=== PATIENT | male | born 1970 | race Caucasian/White ===

== ENCOUNTER → 2023-01-21 | Outpatient (CLI) | payer BC ==
[2023-01-21 22:42] LABS: Basophils # (A) 0.06 X 10*3/uL (0.00-0.10); Basophils % (A) 1.1 %; Eosinophils # (A) 0.08 X 10*3/uL (0.04-0.35); Eosinophils % (A) 1.4 %; HCT 47.6 % (39.6-50.0); HGB 15.6 g/dL (13.0-17.0); Immature Grans, Automated 0.4 %; Lymphocytes # (A) 1.32 X 10*3/uL (0.90-5.00); Lymphocytes % (A) 23.4 %; MCH 31.2 pg (27.0-32.0); MCHC 32.8 g/dL (32.0-37.0); MCV 95.2 fL (80.0-97.0); Mean Platelet Volume 11.2 fL (9.5-12.2); Monocytes # (A) 0.57 X 10*3/uL (0.20-1.00); Monocytes % (A) 10.1 %; NRBC Per 100 WBC 0 /100 WBCS (0.0-0.0); Neutrophils # (A) 3.58 X 10*3/uL (1.80-7.70); Neutrophils % (A) 63.6 %; Platelet Count 145 X 10*3/uL (140-440); RDW 11.9 % (11.5-14.5); WBC 5.63 X 10*3/uL (4.50-10.00)
== END | disposition home or self-care (01) ==
LOC: LABWHC1 09:43
PROVIDERS: ATTEND Surgery
DX: Z01.812 Encounter for preprocedural laboratory examination (principal)
CPT/HCPCS: 36415; 85025; 93005

== ENCOUNTER 2023-01-31 05:56 | Day surgery (SDC) | payer BC ==
[2023-01-26 10:53] VITALS: BMI 33.5
[~2023-01-31 05:56] MED LIST: ACETAMINOPHEN TAB 500 MG TAB PO PRN; HEPARIN SODIUM,PORCINE/PF 5,000 UNIT/0.5 ML SYRINGE SQ PRN
[2023-01-31] MEDS ORDERED: LIDOCAINE 1% (10MG/ML) FOR IV START INTRADERMA PRN (06:12)
[2023-01-31] MEDS ORDERED: DEXAMETHASONE SOD PHOSPHATE 4 MG/ML 1 ML VIAL IV ONE (06:12)
[2023-01-31] MEDS ORDERED: ONDANSETRON 4 MG/2 ML VIAL IVP ONE (06:12)
[2023-01-31] MEDS ORDERED: HYDROmorphone 0.5 MG/0.5 ML SYRINGE IVP PRN (06:12)
[2023-01-31] MEDS ORDERED: MIDAZOLAM 2 MG/2 ML VIAL IV PRN (06:12)
[2023-01-31] MEDS: LACTATED RINGERS 1,000 ML IV SCH ×2 (06:42→07:32)
[2023-01-31] MEDS ORDERED: fentaNYL (PF) 50 MCG/ML 2 ML AMP IVP ONE (07:11)
[2023-01-31] MEDS ORDERED: BUPIVACAIN-EPI 0.25%-1:200,000 30 ML VIAL SQ ONE (07:56)
[2023-01-31] MEDS ORDERED: LACTATED RINGERS 1,000 ML IV ONE (08:29)
--- NOTE | 2023-01-31 08:47 | P.ANPRN ---
Procedure Note - Anesthesia - Nerve Block Performed Bilateral Erector Spinae Single Time Out Performed: Yes ([id number]) Date of Procedure: 01/31/23 Procedure Start Time: 07:11 Procedure Stop Time: 07:15 Location of Patient: PreOp Indication: Acute Post-Operative Pain, Requested by Surgeon Specifically requested for management of pain by DrRonald: Malcolm Maya Sedation Type: Sedate with meaningful contact maintained Preparation: Sterile Prep Position: Prone Catheter: None Needle Types: Pajunk Needle Gauge: 21 Ultrasound used to visualize needle placement: Yes Ultrasound used to observe medication spread: Yes Injectate: 0.5% Ropivacaine (see comment for volume) (15cc + 15cc nacl pf) Blood Aspirated: No Pain Paresthesia on Injection Noted: No Resistance on Injection: Normal Image Stored and Saved: Yes Events: Uneventful and Well Tolerated
--- NOTE | 2023-01-31 09:06 | P.OP ---
Date of Procedure: 01/31/23 Preoperative Diagnosis: Left inguinal hernia Postoperative Diagnosis: Left inguinal hernia Procedure(s) Performed: Laparoscopic robotic system repair of left inguinal hernia Left cord lipoma Laparoscopic lysis of adhesions colorapphy Transversus abdominis plane block Anesthesia: AMELIA Surgeon: Malcolm Maya Estimated Blood Loss (ml): 10 Pathology: other (Cord lipoma) Condition: stable Disposition: PACU Description of Procedure: The patient's placed on the operating table in the supine position. The patient received general anesthesia. The patient's abdomen was prepped and draped in usual sterile fashion. The skin was anesthetized 1% local Xylocaine at the [facility]. Using an 11 blade a skin incision was made above the umbilicus. There was evidence of a umbilical hernia which had incarcerated omentum. The fascia was grasped with a Marlys and then the peritoneal cavity was entered with the Veress needle. Position of the Veress needle was confirmed with a positive drop test. After adequate insufflation a 5 mm trocar was placed into the peritoneal cavity. The Laparoscope was placed the peritoneal cavity. And a robotic 8 mm trocar was placed in the right lateral position and then another 8 mm robotic trochars placed in the left lateral position. The original 5 mm trocar was exchanged for a 12 mm trocar. A four-quadrant transversus abdominis plane block was then performed using 1% local Xylocaine. The patient was placed in reverse Trendelenburg and then the patient was docked to the robot. There were significant adhesions and left lower quadrant. The colon appeared to be adherent to the area of the hernia. Using robotic scissors the colon adhesions were lysed. Approximately 20 minutes of operative time used to lyse adhesions. There was a seromuscular tear of the colon wall. This was sutured with 30V lock suture. There is no evidence of any mucosal injury. Next the peritoneum over top of the hernia was incised and then using blunt and sharp dissection and electrocautery the hernia sac was dissected free from the floor of the inguinal canal. The cord lipoma was dissected free and sent to pathology. The hernia sac was completely reduced into the peritoneal cavity. And then using the Pro molecular technologist mesh the hernia was repaired. The peritoneum was then sutured with 20V lock suture. The patient was then undocked the robot. The needle was withdrawn from the peritoneal cavity. The umbilical trocar site was closed with 0 Ethibond suture. The skin was closed interrupted 3-0 Monocryl suture. Dermabond dressing was applied. Patient was sent to recovery in stable condition.
[2023-01-31 09:07] VITALS: TEMP 97
[2023-01-31 09:53] VITALS: RESP 14
[2023-01-31 10:13] VITALS: BP 148/84; PULSE 77
== END 2023-01-31 11:08 | disposition home or self-care (01) ==
LOC: OR 05:56
PROVIDERS: ATTEND Surgery
DX: K40.90 Unilateral inguinal hernia, without obstruction or gangrene, not specified as recurrent (principal); G89.18 Other acute postprocedural pain; Z87.891 Personal history of nicotine dependence
CPT/HCPCS: 49650; S2900; 64999; 76942; 86850; 86900; 86901; 88304

== ENCOUNTER → 2024-08-09 | Outpatient (CLI) | payer BC ==
[2024-08-09 16:20] LABS: Basophils % (A) 1 %; Eosinophils # (A) 0.1 k/uL (0-0.7); Eosinophils % (A) 1 %; HCT 44.5 % (39.0-53.0); HGB 14.1 gm/dL (13.0-17.5); Lymphocytes # (A) 1.8 k/uL (1.0-4.8); Lymphocytes % (A) 19 %; MCH 31.3 pg (25.0-35.0); MCHC 31.8 g/dL (31.0-37.0); MCV 98.4 fL (80.0-100.0); Mean Platelet Volume 8.2; Monocytes # (A) 0.6 k/uL (0-1.0); Monocytes % (A) 6 %; Neutrophils # (A) 6.7 k/uL (1.3-7.7); Neutrophils % (A) 71 %; Platelet Count 240 k/uL (150-450); RBC 4.52 m/uL (4.30-5.90); RDW 11.8 % (11.5-15.5); WBC 9.4 k/uL (3.8-10.6)
[2024-08-09 16:32] LABS: ALT 42 U/L (4-49); AST 54 U/L (17-59); African American GFR (CKD) 86 (>60 ml/min/1.73 sqM); Albumin 4.7 g/dL (3.5-5.0); Albumin/Globulin Ratio 1.4; Alkaline Phosphatase 124 U/L (38-126); Anion Gap 11 mmol/L; Blood Urea Nitrogen 29 mg/dL (9-20); Calcium 9.2 mg/dL (8.4-10.2); Carbon Dioxide 23 mmol/L (22-30); Chloride 106 mmol/L (98-107); Globulin 3.4 g/dL; Glucose 130 mg/dL (74-99); Non-African American GFR(CKD) 75 (>60 ml/min/1.73 sqM); Potassium 5.6 mmol/L (3.5-5.1); Sodium 140 mmol/L (137-145); Total Bilirubin 0.9 mg/dL (0.2-1.3); Total Protein 8.1 g/dL (6.3-8.2)
--- NOTE | 2024-08-09 18:21 | CT ---
EXAMINATION TYPE: CT abdomen pelvis w con DATE OF EXAM: 08/09/2024 COMPARISON: NONE HISTORY: 54-year-old male R10.32 Nausea, vomiting and diarrhea, LLQ pain. TECHNIQUE: Contiguous axial scanning of the abdomen and pelvis following administration of 100 ml Iso alma-370 IV contrast. Delayed images through the kidneys and coronal/sagittal reconstructions perform ed. CT DLP: 1247 mGycm Automated exposure control for dose reduction was used. FINDINGS: The heart is normal size without pericardial effusion. Lung bases clear without pleural effusion. Tiny hiatal hernia. Liver enlarged at 18.6 cm. Low attenuation of the hepatic parenchyma suggests fatty infiltration. Por reji venous system is patent. No biliary ductal dilatation. No abnormal gallbladder distention. Adrenal glands, kidneys, spleen, pancreas within normal limits. No dilated small bowel, free fluid, or free air. No mesenteric or retroperitoneal lymphadenopathy. Moderate atherosclerotic calcification and plaque within the infrarenal abdominal aorta and proximal common iliac arteries. There is some fusiform ectasia of the 2.8 cm long infrarenal portion. Small to moderate-sized hiatal hernia measuring 3.3 cm wide and 4.1 cm craniocaudal. Normal appendix. A few scattered colonic diverticula particularly at the ascending colon and cecum. N o pericolonic inflammatory change. Oral contrast progressed to the rectum. There is moderate circumferential bladder wall thickening. Prostate gland normal size. Mildly patulou s right inguinal canal. No abnormal fluid collection in the pelvis or pelvic lymphadenopathy. Bones: Scattered mild degenerative changes throughout the right. Mild degenerative changes joints. IMPRESSION: 1. HEPATOMEGALY AT 18.6 CM WITH UNDERLYING FATTY INFILTRATION OF THE LIVER. CORRELATE WITH LFT's, LIP ID PROFILE, AND PATIENT RISK FACTORS. 2. TINY HIATAL HERNIA AND A SMALL TO MODERATE-SIZED FATTY UMBILICAL HERNIA MEASURING 4.1 X 3.3 CM. 3. MINIMAL DIVERTICULAR CHANGE ALONG THE CECUM/ASCENDING COLON. 4. MODERATE CIRCUMFERENTIAL BLADDER WALL THICKENING COULD REFLECT CHRONIC BLADDER WALL HYPERTROPHY OR CYSTITIS. CLINICALLY CORRELATE. [facility], , 08/09/2024 6:19 PM
== END | disposition home or self-care (01) ==
LOC: RADCTMAIN 15:37
PROVIDERS: ATTEND Family Medicine
CPT/HCPCS: 74177; 80053; 85025

== ENCOUNTER → 2024-10-28 | Outpatient (CLI) | payer OTHER ==
--- NOTE | 2024-10-28 16:31 | XR ---
EXAMINATION TYPE: XR shoulder complete RT DATE OF EXAM: 10/28/2024 4:27 PM INDICATION: Patient age:Male; 54 years old; Reason for study: S46.911A; pain COMPARISON: None TECHNIQUE: The right shoulder was examined in AP, internally rotated and scapular Y projections. . FINDINGS: No evidence of acute osseous pathology, joint dislocation, or soft tissue swelling. The remaining por tions of the visualized chest are unremarkable. IMPRESSION: No acute osseous pathology. [facility], , 10/28/2024 4:29 PM
== END | disposition home or self-care (01) ==
LOC: RADXRMAIN 16:12
PROVIDERS: ATTEND Emergency Medicine
DX: S46.911A Strain of unspecified muscle, fascia and tendon at shoulder and upper arm level, right arm, initial encounter (principal); X58.XXXA Exposure to other specified factors, initial encounter

== ENCOUNTER → 2024-11-13 | Outpatient (CLI) | payer OTHER ==
--- NOTE | 2024-11-13 19:57 | MR ---
EXAMINATION TYPE: MR shoulder RT wo con DATE OF EXAM: 11/13/2024 1:48 PM COMPARISON: None. CLINICAL INDICATION: Male, 54 years old with history of S46.911D STRAIN UNSP MUSC/FASC/TEND AT SHLDR/ UP AR, Rt shoulder-possible torn muscle x2 weeks IV Contrast: cc (None if empty) TECHNIQUE: Multiplanar, multisequence imaging of the right shoulder is performed without contrast. FINDINGS: There is no bone contusion or fracture. There is moderate osteoarthritic changes of the AC joint with a small subacromial spur resulting in m ild shoulder impingement. There is a small intrasubstance tear of the infraspinatus tendon near the musculotendinous junction. The supraspinatus and subscapularis tendons are intact. The biceps tendon is subluxed medially and there is abnormal signal intensity in the distal aspect of the long head of the biceps indicating partial tear near the biceps anchor with a probable SLAP inju ry of the superior cartilaginous labrum. There is no subacromial or subdeltoid bursitis. IMPRESSION: 1. Partial tear of the long head of the biceps tendon near the biceps anchor with tear of the superio r cartilaginous labrum consistent with a SLAP injury. 2. Small intrasubstance tear of the infraspinatus tendon without retraction. 3. Mild shoulder impingement secondary to degenerative change of the AC joint and subacromial spur. [facility], , 11/13/2024 7:54 PM
== END | disposition home or self-care (01) ==
LOC: RADMRIMAIN 12:46
PROVIDERS: ATTEND Emergency Medicine
DX: S46.911D Strain of unspecified muscle, fascia and tendon at shoulder and upper arm level, right arm, subsequent encounter (principal); M19.011 Primary osteoarthritis, right shoulder; M25.811 Other specified joint disorders, right shoulder

== ENCOUNTER 2025-05-01 14:26 | Inpatient (IN) | payer BC ==
[2025-05-01 15:10] LABS: Basophils # (A) 0.10 10*3/uL (0.00-0.10); Basophils % (A) 0.7 %; Eosinophils # (A) 0.15 10*3/uL (0.04-0.35); Eosinophils % (A) 1.1 %; HCT 39.3 % (39.6-50.0); HGB 13.1 g/dL (13.0-17.0); Lymphocytes # (A) 2.45 10*3/uL (0.90-5.00); Lymphocytes % (A) 18.0 %; MCH 32.3 pg (27.0-32.0); MCHC 33.3 g/dL (32.0-37.0); MCV 97.0 fL (80.0-97.0); Monocytes # (A) 1.42 10*3/uL (0.20-1.00); Monocytes % (A) 10.4 %; Neutrophils # (A) 9.43 10*3/uL (1.80-7.70); Neutrophils % (A) 69.3 %; Platelet Count 222 10*3/uL (140-440); RBC 4.05 10*6/uL (4.40-5.60); RDW 11.5 % (11.5-14.5); WBC 13.62 10*3/uL (4.50-10.00)
--- NOTE | 2025-05-01 15:11 | ED ---
General Adult HPI - General Chief complaint: Recheck/Abnormal Lab/Rx Stated complaint: abn labs/dizzy Time Seen by Provider: 05/01/25 14:43 Source: patient, RN notes reviewed Mode of arrival: ambulatory Limitations: no limitations - History of Present Illness Initial comments: This is a 54-year-old male with history including hypertension, hyperlipidemia, DM and urology procedure presenting for abnormal lab work discovered earlier today. Patient states he went to urgent care due to his lower abdominal pain (7/10) occurring for the past 3 days. Patient states urgent care ordered lab work to assess kidney function prior to CT order when it was discovered his creatinine was 13.7 and patient was sent to ER. Patient endorses associated d izziness/lightheadedness that worsens with positional change, nausea/vomiting and increased fatigue starting around the same time as his lower abdominal pain. Denies fever, chills, chest pain, dyspnea, hematemesis, melena, hematochezia, dysuria, hematuria. Onset/Timin -: days(s) Severity scale (1-10): 7 Consistency: constant Associated Symptoms: malaise, nausea/vomiting - Related Data Home Medications Medication Instructions Recorded Confirmed Atorvastatin [Lipitor] 20 mg PO DAILY 05/01/25 05/01/25 Empagliflozin [Jardiance] 10 mg PO DAILY 05/01/25 05/01/25 lisinopriL [Zestril] 20 mg PO DAILY 05/01/25 05/01/25 metFORMIN HCL 500 mg PO DAILY 05/01/25 05/01/25 Allergies Allergy/AdvReac Type Severity Reaction Status Date / Time No Known Allergies Allergy Verified 05/01/25 16:48 Review of Systems ROS Statement: Those systems with pertinent positive or pertinent negative responses have been documented in the HPI. ROS Other: All systems not noted in ROS Statement are negative. Past Medical History Past Medical History: Diabetes Mellitus, Hyperlipidemia, Hypertension History of Any Multi-Drug Resistant Organisms: None Reported Past Surgical History: Hernia Repair Additional Past Surgical History / Comment(s): Urology procedure. Past Anesthesia/Blood Transfusion Reactions: No Reported Reaction Past Psychological History: No Psychological Hx Reported Smoking Status: Former smoker Past Alcohol Use History: Daily Past Drug Use History: None Reported - Past Family History Father Family Medical History: Cancer Additional Family Medical History / Comment(s): Throat cancer. General Exam Limitations: no limitations General appearance: alert, in no apparent distress Head exam: Present: atraumatic, normocephalic, normal inspection Eye exam: Present: normal appearance, PERRL, EOMI. Absent: scleral icterus, conjunctival injection, periorbital swelling ENT exam: Present: normal exam, mucous membranes moist Neck exam: Present: normal inspection. Absent: tenderness, meningismus, lymphadenopathy Respiratory exam: Present: normal lung sounds bilaterally. Absent: respiratory distress, wheezes, rales, rhonchi, stridor Cardiovascular Exam: Present: regular rate, normal rhythm, normal heart sounds. Absent: systolic murmur, diastolic murmur, rubs, gallop, clicks GI/Abdominal exam: Present: soft, distended, tenderness (Positive RLQ, epigastric and LLQ TTP. Positive McBurney point and Rovsing sign. Negative Brantley sign.), diminished bowel sounds, hypoactive bowel sounds. Absent: guarding, rebound, rigid Extremities exam: Present: normal inspection, full ROM, normal capillary refill. Absent: tenderness, pedal edema, joint swelling, calf tenderness Back exam: Present: normal inspection Neurological exam: Present: alert, oriented X3, CN II-XII intact Psychiatric exam: Present: normal affect, normal mood Skin exam: Present: warm, dry, intact, normal color. Absent: rash Course Vital Signs 05/01/25 05/01/25 05/01/25 14:36 15:41 16:09 Temperature 98.1 F Pulse Rate 97 100 90 Respiratory 20 18 18 Rate Blood Pressure 82/53 77/44 81/49 O2 Sat by Pulse 98 100 98 Oximetry 05/01/25 05/01/25 05/01/25 16:40 16:52 17:20 Temperature Pulse Rate 88 86 93 Respiratory 18 Rate Blood Pressure 81/56 O2 Sat by Pulse 96 Oximetry Medical Decision Making - Medical Decision Making Was pt. sent in by a medical professional or institution (, PA, PATTERN MOLDER, urgent care, hospital, or snf...) When possible be specific @ -Urgent care Did you speak to anyone other than the patient for history (EMS, parent, family, police, friend...)? What history was obtained from this source @ -No Did you review nursing and triage notes (agree or disagree)? Why? @ -I reviewed and agree with nursing and triage notes Were old charts reviewed (outside hosp., previous admission, EMS record, old EKG, old radiological studies, urgent care reports/EKG's, snf records)? Report findings @ -No old charts were reviewed Differential Diagnosis (chest pain, altered mental status, abdominal pain women, abdominal pain men, vaginal bleeding, weakness, fever, dyspnea, syncope, headache, dizziness, GI bleed, back pain, seizure, CVA, palpatations, mental health, musculoskeletal)? @ -Differential Abdominal Pain Men: Appendicitis, cholecystitis, diverticulosis, ischemic bowel, pancreatitis, hepatitis, UTI, gastroenteritis, AAA, incarcerated hernia, bowel obstruction, constipation, inflammatory bowel, hepatitis, peptic ulcer disease, splenic infarction, perforated viscus, testicular torsion, this is not meant to be an all-inclusive list EKG interpreted by me (3pts min.). @ -Sinus rhythm with isolated lead III T wave inversion. No ST deviation. Ventricular rate 91 bpm, HEMA 180 ms, QRS 104 ms, QTc 382 ms. X-rays interpreted by me (1pt min.). @ -CXR shows no acute cardiopulmonary process. CT interpreted by me (1pt min.). @ -AP CT without contrast shows no acute changes with no renal calcifications or hydronephrosis. U/S interpreted by me (1pt. min.). @ -None done What testing was considered but not performed or refused? (CT, X-rays, U/S, labs)? Why? @ -None What meds were considered but not given or refused? Why? @ -None Did you discuss the management of the patient with other professionals (professionals i.e. , PA, PATTERN MOLDER, lab, RT, psych nurse, social media marketing analyst, cleaners, teacher, commercial loan collection officer, watch case polisher)? Give summary @ -Spoke to Dr. Edouard from nephrology who advised D5W with 3 amp of bicarbonate at 125 mL/h. Also advised to initiate Javier catheter. Spoke to Latricia Merino from [facility] regarding patient admission. Was smoking cessation discussed for >3mins.? @ -No Was critical care preformed (if so, how long)? @ -No Were there social determinants of health that impacted care today? How? (Homelessness, low income, unemployed, alcoholism, drug addiction, transportation, low edu. Level, literacy, decrease access to med. care, usp, rehab)? @ -No Was there de-escalation of care discussed even if they declined (Discuss DNR or withdrawal of care, Hospice)? DNR status @ -No What co-morbidities impacted this encounter? (DM, HTN, Smoking, COPD, CAD, Cancer, CVA, ARF, Chemo, Hep., AIDS, mental health diagnosis, sleep apnea, morbid obesity)? @ -None Was patient admitted / discharged? Hospital course, mention meds given and route, prescriptions, significant lab abnormalities, going to OR and other pertinent info. @ -Patient initially provided IV normal saline, Toradol, Dilaudid, Pepcid and Protonix. Lab work work notable for potassium 6.1, anion gap 24, carbon dioxide 15, calcium 10.3, magnesium 2.6. Kidney function BUN 90, creatinine 12.76, GFR 4. Kidney function in July 2024: BUN 29, creatinine 1.10, GFR 75. WBC 13.62, glucose 144, lipase 996. Normal troponin, lactic acid 1.9 and normal LFTs. CXR shows no acute cardiopulmonary process. AP CT without contrast shows no acute changes with no renal calcifications or hydronephrosis. A hyperkalemia set of p.o. Lokelma, nebulized albuterol and IV calcium gluconate, D50, 10 units insulin ordered. With the elevated white count and hypotension, blood culture taken and IV Rocephin given. Spoke to Dr. Edouard from nephrology who advised D5W with 3 amp of bicarbonate at 125 mL/h. Also advised to initiate Javier catheter. Spoke to Latricia Merino from [facility] regarding patient admission. Discussed patient with Dr. Byrd. Undiagnosed new problem with uncertain prognosis? @ -No Drug Therapy requiring intensive monitoring for toxicity (Heparin, Nitro, Insulin, Cardizem)? @ -No Were any procedures done? @ -No Diagnosis/symptom? @ -CHLOÉ, metabolic acidosis, hyperkalemia Acute, or Chronic, or Acute on Chronic? @ -Acute Uncomplicated (without systemic symptoms) or Complicated (systemic symptoms)? @ -Complicated Side effects of treatment? @ -No Exacerbation, Progression, or Severe Exacerbation? @ -No Poses a threat to life or bodily function? How? (Chest pain, USA, HI, pneumonia, PE, COPD, DKA, ARF, appy, cholecystitis, CVA, Diverticulitis, Homicidal, Suicidal, threat to staff... and all critical care pts) @ -CHLOÉ - Lab Data Result diagrams: 05/01/25 15:05 05/01/25 15:05 Lab Results 05/01/25 05/01/25 05/01/25 Range/Units 15:05 15:05 15:05 WBC 13.62 H (4.50-10.00) 10*3/uL RBC 4.05 L (4.40-5.60) 10*6/uL Hgb 13.1 (13.0-17.0) g/dL Hct 39.3 L (39.6-50.0) % MCV 97.0 (80.0-97.0) fL MCH 32.3 H (27.0-32.0) pg MCHC 33.3 (32.0-37.0) g/dL Plt Count 222 (140-440) 10*3/uL MPV 11.9 (9.5-12.2) fL Immature Gran % (Auto) 0.5 % Neutrophils % 69.3 % Lymphocytes % 18.0 % Monocytes % 10.4 % Eosinophils % 1.1 % Basophils % 0.7 % Immature Gran # 0.07 H (0.00-0.04) 10*3/uL Neutrophils # 9.43 H (1.80-7.70) 10*3/uL Lymphocytes # 2.45 (0.90-5.00) 10*3/uL Monocytes # 1.42 H (0.20-1.00) 10*3/uL Eosinophils # 0.15 (0.04-0.35) 10*3/uL Basophils # 0.10 (0.00-0.10) 10*3/uL PT 10.9 (10.0-12.5) sec INR 1.0 (<1.2) APTT 20.1 L (22.0-30.0) sec Sodium 134 L (137-145) mmol/L Potassium 6.1 H* (3.5-5.1) mmol/L Chloride 95 L (98-107) mmol/L Carbon Dioxide 15 L (22-30) mmol/L Anion Gap 24 mmol/L BUN 90 H (9-20) mg/dL Creatinine 12.76 H* (0.66-1.25) mg/dL Est GFR (CKD-EPI)AfAm 4 (>60 ml/min/1.73 sqM) Est GFR (CKD-EPI)NonAf 4 (>60 ml/min/1.73 sqM) Glucose 144 H (74-99) mg/dL Plasma Lactic Acid Porter (0.7-2.0) mmol/L Calcium 10.3 H (8.4-10.2) mg/dL Magnesium 2.6 H (1.6-2.3) mg/dL Total Bilirubin 0.9 (0.2-1.3) mg/dL AST 29 (17-59) U/L ALT 29 (4-49) U/L Alkaline Phosphatase 115 (38-126) U/L Troponin I (0.000-0.034) ng/mL Total Protein 8.1 (6.3-8.2) g/dL Albumin 4.9 (3.5-5.0) g/dL Lipase (23-300) U/L 05/01/25 05/01/25 05/01/25 Range/Units 15:05 15:05 15:28 WBC (4.50-10.00) 10*3/uL RBC (4.40-5.60) 10*6/uL Hgb (13.0-17.0) g/dL Hct (39.6-50.0) % MCV (80.0-97.0) fL MCH (27.0-32.0) pg MCHC (32.0-37.0) g/dL Plt Count (140-440) 10*3/uL MPV (9.5-12.2) fL Immature Gran % (Auto) % Neutrophils % % Lymphocytes % % Monocytes % % Eosinophils % % Basophils % % Immature Gran # (0.00-0.04) 10*3/uL Neutrophils # (1.80-7.70) 10*3/uL Lymphocytes # (0.90-5.00) 10*3/uL Monocytes # (0.20-1.00) 10*3/uL Eosinophils # (0.04-0.35) 10*3/uL Basophils # (0.00-0.10) 10*3/uL PT (10.0-12.5) sec INR (<1.2) APTT (22.0-30.0) sec Sodium (137-145) mmol/L Potassium (3.5-5.1) mmol/L Chloride (98-107) mmol/L Carbon Dioxide (22-30) mmol/L Anion Gap mmol/L BUN (9-20) mg/dL Creatinine (0.66-1.25) mg/dL Est GFR (CKD-EPI)AfAm (>60 ml/min/1.73 sqM) Est GFR (CKD-EPI)NonAf (>60 ml/min/1.73 sqM) Glucose (74-99) mg/dL Plasma Lactic Acid Porter 1.9 (0.7-2.0) mmol/L Calcium (8.4-10.2) mg/dL Magnesium (1.6-2.3) mg/dL Total Bilirubin (0.2-1.3) mg/dL AST (17-59) U/L ALT (4-49) U/L Alkaline Phosphatase (38-126) U/L Troponin I <0.012 (0.000-0.034) ng/mL Total Protein (6.3-8.2) g/dL Albumin (3.5-5.0) g/dL Lipase 996 H (23-300) U/L Disposition Clinical Impression: Hyperkalemia, CHLOÉ (acute kidney injury), Metabolic acidosis Disposition: ADMITTED IP TO THIS [facility] Condition: Serious Referrals: Philip Alexander MD [Primary Care Provider] - 1-2 days Time of Disposition: 17:21 Decision Date: 05/01/25 Decision Time: 17:21
[2025-05-01 15:30] LABS: ALT 29 U/L (4-49); AST 29 U/L (17-59); African American GFR (CKD) 4 (>60 ml/min/1.73 sqM); Albumin 4.9 g/dL (3.5-5.0); Alkaline Phosphatase 115 U/L (38-126); Anion Gap 24 mmol/L; Blood Urea Nitrogen 90 mg/dL (9-20); Calcium 10.3 mg/dL (8.4-10.2); Carbon Dioxide 15 mmol/L (22-30); Chloride 95 mmol/L (98-107); Glucose 144 mg/dL (74-99); Magnesium 2.6 mg/dL (1.6-2.3); Non-African American GFR(CKD) 4 (>60 ml/min/1.73 sqM); Sodium 134 mmol/L (137-145); Total Protein 8.1 g/dL (6.3-8.2)
[2025-05-01] MEDS: KETOROLAC 15 MG/ML 1 ML VIAL IVP STA (15:34)
[2025-05-01 15:35] LABS: INR 1.0 (<1.2); Prothrombin Time 10.9 sec (10.0-12.5)
[2025-05-01] MEDS: SODIUM CHLORIDE 0.9% 1,000 ML IV STA ×4 (15:35→19:00)
[2025-05-01] MEDS: HYDROmorphone 1 MG/ML 1 ML SYRINGE IVP STA (15:35)
[2025-05-01] MEDS: PANTOPRAZOLE 40 MG/10 ML VIAL IVP STA (15:36)
[2025-05-01] MEDS: FAMOTIDINE 20 MG/2 ML VIAL IV STA (15:36)
[2025-05-01 15:38] LABS: Potassium 6.1 mmol/L (3.5-5.1)
[2025-05-01 15:42] LABS: Partial Thromboplastin Time 20.1 sec (22.0-30.0)
--- NOTE | 2025-05-01 15:48 | XR ---
EXAMINATION TYPE: XR chest 2V DATE OF EXAM: 05/01/2025 3:15 PM COMPARISON: None CLINICAL INDICATION: Male, 54 years old with history of Chest Pain; [facility] TECHNIQUE: XR chest 2V Frontal and lateral views of the chest. FINDINGS: Lungs/Pleura: There is no evidence of pleural effusion, focal consolidation, or pneumothorax. Pulmonary vascularity: Unremarkable. Heart/mediastinum: Cardiomediastinal silhouette is unremarkable. Musculoskeletal: No acute osseous pathology. IMPRESSION: No acute cardiopulmonary disease/process. [facility], , 05/01/2025 3:46 PM
[2025-05-01] MEDS: DEXTROSE 50% SYRINGE 50 ML IVP ONE (16:04)
[2025-05-01] MEDS: SODIUM ZIRCONIUM CYCLOSILICATE 10 GM PACKET PO ONE (16:04)
[2025-05-01] MEDS: CALCIUM GLUCONATE IN NACL 1 GM in SALINE 1 100ML.BAG IVPB ONE (16:04)
[2025-05-01] MEDS: INSULIN REGULAR 100 UNIT/ML VIAL (IV) IV ONE (16:04)
--- NOTE | 2025-05-01 16:15 | CT ---
EXAMINATION TYPE: CT abdomen pelvis wo con DATE OF EXAM: 05/01/2025 COMPARISON: 08/09/2024 CLINICAL INDICATION: Male, 54 years old with history of Lower abdominal pain; PHH, Lower abd pain. Cr eatinine of 13.7 and GFR of 4. Dizziness. TECHNIQUE: CT scan of the abdomen and pelvis is performed without oral or IV contrast. CT DLP: [address] CTDI: mGy Automated exposure control for dose reduction was used. FINDINGS: Within the limitations of a non-contrast study, the following observations are made. The lungs are clear. Gallbladder is normal and there is no gallstone, wall thickening, pericholecystic fluid or distention . There is no biliary ductal dilatation. There is no organomegaly of the liver, pancreas, spleen or adrenal glands. There are no renal calcifications or hydronephrosis. The caliber of the abdominal aorta is normal and there is no retroperitoneal adenopathy or hemorrhage . The bowel loops are normal in caliber is no evidence of obstruction. No inflammatory changes are iden tified in the mesentery and there is no free intraperitoneal air or fluid. There is no pelvic mass, free fluid, abscess or adenopathy. The prostate is not enlarged but there ar e dense prostatic calcifications. The osseous structures and soft tissues are unremarkable. IMPRESSION: No acute changes within the abdomen or pelvis. No interval change compared to the CT abdomen and pelv is dated 08/09/2024 [facility], , 05/01/2025 4:12 PM
[2025-05-01] MEDS: ALBUTEROL NEB (CONC) 2.5 MG/0.5 ML INHALATION ONE (16:42)
[2025-05-01] MEDS: cefTRIAXone IN SWFI 1,000 MG/10 ML SYRINGE IVP STA (17:06)
[2025-05-01] MEDS ORDERED: NALOXONE 0.4 MG/ML 1 ML VIAL IV PRN (17:18)
[2025-05-01] MEDS ORDERED: ONDANSETRON 4 MG/2 ML VIAL IVP PRN (17:18)
[2025-05-01 20:19] LABS: African American GFR (CKD) 5 (>60 ml/min/1.73 sqM); Anion Gap 19 mmol/L; Blood Urea Nitrogen 87 mg/dL (9-20); Calcium 8.9 mg/dL (8.4-10.2); Carbon Dioxide 13 mmol/L (22-30); Chloride 104 mmol/L (98-107); Glucose 153 mg/dL (74-99); Non-African American GFR(CKD) 5 (>60 ml/min/1.73 sqM); Potassium 5.1 mmol/L (3.5-5.1); Sodium 136 mmol/L (137-145)
[2025-05-01] MEDS: DEXTROSE 5% IN WATER 1,000 ML with SODIUM BICARB (1 MEQ/ML) 150 ML IV SCH (20:20)
[2025-05-01] MEDS: NOREPINEPHRINE 8 MG in SODIUM CHLORIDE 0.9% 250 ML IV SCH (20:54)
[2025-05-01 21:38] LABS: Glucose,Whole Blood 190 mg/dL (70-110)
[2025-05-01] MEDS ORDERED: DEXTROSE 50% SYRINGE 50 ML IVP PRN ×2 (23:01)
[2025-05-01 23:43] LABS: Bacteria,Urine Rare /hpf; Bilirubin,Urine 1+ (Negative); Blood,Urine Small (Negative); Color,Urine Light Yellow; Glucose,Urine (UA) 3+ (Negative); Hyaline Casts,Urine 183 /lpf (0-2); Ketones,Urine Negative (Negative); Leukocyte Esterase,Urine Negative (Negative); Mucus,Urine Occasional /hpf; Nitrite,Urine Negative (Negative); PH, Urine 5.5 (5.0-8.0); Protein,Urine 1+ (Negative); RBC,Urine 1 /hpf (0-5); Specific Gravity,Urine 1.014 (1.001-1.035); Squamous Epithelial Cell,Urine 2 /hpf (0-4); Urobilinogen,Urine <2.0 mg/dL (<2.0); WBC,Urine 8 /hpf (0-5)
--- NOTE | 2025-05-02 00:52 | P.CNPUL ---
History of Present Illness Consult date: 05/02/25 Requesting physician: Eliezer Byrd Reason for consult: other (Abnormal labs) Chief complaint: Abnormal labs at urgent care center, abdominal pain History of present illness: Patient is a 54-year-old male with past medical history significant for hypertension, hyperlipidemia, diabetes mellitus type 2. Also, shoulder injury in October,. Shoulder MRI October, showing partial tear along the head of the biceps tendon near the biceps anchor with tear of the superior cartilaginous labrum consistent with a SLAP injury. Also, small intrasubstance tear of the infraspinatus tendon without retraction. Mild shoulder impingement secondary to degenerative changes AC joint and subacromial spur. This has been causing him pain, and has been taking 400 mg of ibuprofen almost every 4 hours while awake since October. Additionally, he takes lisinopril for his hypertension. Metformin and Jardiance for management of his type 2 diabetes. His primary care provider is Dr. Alexander. He presented to a local urgent care center yesterday with abdominal pain over the last 3 days. Also, nausea and vomiting. He was discovered to have abnormal kidney function on his blood work. Directed to our emergency department for evaluation. He was hypotensive and aggressively fluid resuscitated with 3 L of normal saline IV bolus. His creatinine was elevated at 12.76. Also, potassium was 6.1. This was treated with a K cocktail including 10 units of regular insulin, 1 amp of D50 W, 1 g calcium gluconate, concentrated albuterol treatment, and 10 g of Lokelma.. Also, severe metabolic acidosis and started on a sodium bicarb drip. Repeat potassium level down to 5.1. Kidney function has improved marginally. He has voided once since his admission. Labs including a CBC with a WBC count of 13.62, hemoglobin 13.1, platelets 222. Most recent BMP with a sodium 136, potassium 5.1, chloride 104, serum bicarb 13, BUN 87, creatinine 10.79, glucose 153. Magnesium 2.6. Troponin less than 0.012. EKG: Sinus rhythm, rate 91 bpm, no QRS widening or peaked T waves. Lipase 996. Urinalysis not particularly remarkable for infection. He was empirically given a dose of Rocephin. Abdominal CT done in the emergency department did not show any evidence of hydronephrosis or renal calcifications. No acute intra-abdominal process. Patient currently being evaluated in the intensive care unit. Nontoxic appearance. In no apparent distress. On a low-dose of norepinephrine at 0.03 mcg/kg/min. 3 A of sodium bicarb in D5W infusing at 125 mL/h. Blood pressure currently 107/68 mmHg. Nontachycardic. Afebrile. Denies any dysuria, frequency, hematuria, recent urological procedures. Some right flank tenderness. Denies history of chronic kidney disease. No further nausea or vomiting. Previously, described as mostly water and food products. No diarrhea. Abdominal pain in the suprapubic region. Previously, rated 7 out of 10 and now improved. Denies history of chronic kidney disease. Blood pressures have been reportedly well-managed at home. He does not check his blood sugars daily. Review of Systems REVIEW OF SYSTEMS: CONSTITUTIONAL: Denies any recent significant weight loss or weight gain. EYES: Denies change in vision. EARS, NOSE, MOUTH, THROAT: Denies headaches, denies sore throat. CARDIOVASCULAR: Denies chest pain, palpitations or syncopal episodes. RESPIRATORY: Denies shortness of breath, cough, congestion or hemoptysis. GASTROINTESTINAL: See HPI GENITOURINARY: See HPI MUSKULOSKELETAL: Denies pain, denies swelling. INTEGUMENTARY: Denies rash, denies eczema. NEUROLOGICAL: Denies recent memory loss, no recent seizure activity. PSYCHIATRIC: Denies anxiety, denies depression. HEMATOLOGIC/LYMPHATIC: Denies anemia, denies enlarged lymph node Past Medical History Past Medical History: Diabetes Mellitus, Hyperlipidemia, Hypertension Additional Past Medical History / Comment(s): ETOH History of Any Multi-Drug Resistant Organisms: None Reported Past Surgical History: Hernia Repair Additional Past Surgical History / Comment(s): Urology procedure. Past Anesthesia/Blood Transfusion Reactions: No Reported Reaction Past Psychological History: No Psychological Hx Reported Smoking Status: Former smoker Past Alcohol Use History: Daily Additional Past Alcohol Use History / Comment(s): Quit smoking 15 yrs ago. 2 alcoholic drinks daily. Past Drug Use History: None Reported - Past Family History Father Family Medical History: Cancer Additional Family Medical History / Comment(s): Throat cancer. Medications and Allergies Home Medications Medication Instructions Recorded Confirmed Type Atorvastatin [Lipitor] 20 mg PO DAILY 05/01/25 05/01/25 History Empagliflozin [Jardiance] 10 mg PO DAILY 05/01/25 05/01/25 History lisinopriL [Zestril] 20 mg PO DAILY 05/01/25 05/01/25 History metFORMIN HCL 500 mg PO DAILY 05/01/25 05/01/25 History Allergies Allergy/AdvReac Type Severity Reaction Status Date / Time No Known Allergies Allergy Verified 05/01/25 16:48 Physical Exam Vitals: Vital Signs Temp Pulse Resp BP BP Pulse Ox 05/01/25 23:00 87 16 107/68 96 05/01/25 22:00 89 18 85/54 96 05/01/25 21:23 98.4 F 16 85/54 96 05/01/25 21:06 101/62 05/01/25 21:04 120/71 05/01/25 20:56 76/53 05/01/25 19:37 94 18 85/47 96 05/01/25 19:01 92 16 87/57 97 05/01/25 17:20 93 18 81/56 96 05/01/25 16:52 86 05/01/25 16:40 88 05/01/25 16:09 90 18 81/49 98 05/01/25 15:41 100 18 77/44 100 05/01/25 14:36 98.1 F 97 20 82/53 98 Intake and Output 05/01/25 05/01/25 05/02/25 14:59 22:59 06:59 Intake Total 705 125 Output Total 150 Balance 705 -25 Intake: IV 125 125 Dextrose 5% in Water 1, 125 125 000 ml @ 125 mls/hr IV . Q9H12M LANDON with Sodium Bicarb (1 Meq/ml) 150 ml Rx#:[id number] Oral 580 Output: Urine 150 Other: Weight 87.997 kg 87.997 kg GENERAL EXAM: Alert, 54-year-old obese male, nontoxic appearance, comfortable in no apparent distress. HEAD: Normocephalic and atraumatic EYES: Normal reaction of pupils, equal size. NOSE: Clear with pink turbinates. THROAT: No erythema or exudates. NECK: No masses, no JVD. CHEST: No chest wall deformity. LUNGS: Equal air entry with no crackles, wheeze, rhonchi or dullness. On on room air. No conversational dyspnea or accessory muscle use.. CVS: S1 and S2 normal with no audible murmur, regular rhythm. No extra heart sounds ABDOMEN: No hepatosplenomegaly, active bowel sounds, no guarding or rigidity. SPINE: No scoliosis or deformity. Technically positive right CVA tenderness SKIN: No rashes CENTRAL NERVOUS SYSTEM: No focal deficits, tone is normal in all 4 extremities. EXTREMITIES: There is no peripheral edema, clubbing, or cyanosis. Peripheral pulses are intact. Results - Laboratory Findings CBC and BMP: 05/02/25 03:09 05/02/25 03:09 PT/INR, D-dimer PT 10.9 sec (10.0-12.5) 05/01/25 15:05 INR 1.0 (<1.2) 05/01/25 15:05 Abnormal lab findings: Abnormal Labs 05/01/25 05/01/25 05/01/25 15:05 15:05 15:05 WBC 13.62 H RBC 4.05 L Hct 39.3 L MCH 32.3 H Immature Gran # 0.07 H Neutrophils # 9.43 H Monocytes # 1.42 H APTT 20.1 L Sodium 134 L Potassium 6.1 H* Chloride 95 L Carbon Dioxide 15 L BUN 90 H Creatinine 12.76 H* Glucose 144 H POC Glucose (mg/dL) Calcium 10.3 H Magnesium 2.6 H Lipase Urine Protein Urine Glucose (UA) Urine Blood Urine Bilirubin Urine WBC Urine Bacteria Hyaline Casts Urine Mucus 05/01/25 05/01/25 05/01/25 15:05 19:46 20:45 WBC RBC Hct MCH Immature Gran # Neutrophils # Monocytes # APTT Sodium 136 L Potassium Chloride Carbon Dioxide 13 L BUN 87 H Creatinine 10.79 H* Glucose 153 H POC Glucose (mg/dL) Calcium Magnesium Lipase 996 H Urine Protein 1+ H Urine Glucose (UA) 3+ H Urine Blood Small H Urine Bilirubin 1+ H Urine WBC 8 H Urine Bacteria Rare H Hyaline Casts 183 H Urine Mucus Occasional H 05/01/25 21:37 WBC RBC Hct MCH Immature Gran # Neutrophils # Monocytes # APTT Sodium Potassium Chloride Carbon Dioxide BUN Creatinine Glucose POC Glucose (mg/dL) 190 H Calcium Magnesium Lipase Urine Protein Urine Glucose (UA) Urine Blood Urine Bilirubin Urine WBC Urine Bacteria Hyaline Casts Urine Mucus - Diagnostic Findings Chest x-ray: image reviewed Assessment and Plan Assessment: Acute kidney injury, patient has been taking NSAIDs [id number], as well as, his lisinopril Hypotension, refractory to fluid resuscitation, currently on low-dose norepinephrine Acute anion gap metabolic acidosis, currently on sodium bicarb infusion at 125 mL/h Severe hyperkalemia, secondary to above, treated with K cocktail, most recent potassium down to 5.1 Abdominal pain, CT abdomen pelvis did not show any acute intra-abdominal process. No renal calculi or hydronephrosis. Elevated lipase, 996 Acute leukocytosis, received empiric dose of Rocephin in the ED Right shoulder injury, Shoulder MRI October, showing partial tear along the head of the biceps tendon near the biceps anchor with tear of the superior cartilaginous labrum consistent with a SLAP injury. Also, small intrasubstance tear of the infraspinatus tendon without retraction. Mild shoulder impingement secondary to degenerative changes AC joint and subacromial spur. This has been causing him pain, and has been taking 400 mg of ibuprofen almost every 4 hours while awake since October. History of hypertension, maintained on lisinopril Diabetes mellitus type 2, normally maintained on metformin and Jardiance Obesity, with a BMI of 33.3 kg/m Plan: Previously, aggressively fluid resuscitated with 3 L of normal saline fluid bolus Continue norepinephrine for blood pressure support, currently infusing at 0.03 mcg/kg/min, maintain a MAP of 65 mmHg or greater Continue 3 AM sodium bicarbonate in D5W infusion at 125 mL/h Monitor electrolytes and renal function Lisinopril is on hold Educated on the importance of stopping his ibuprofen use Nephrology is consulted Patient will be monitored in the intensive care unit for now. I have personally seen and examined the patient, performed the documentation and the assessment and plan as written. Number of minutes spent on the visit:20 On 05/02/2025, the patient is being seen in joint evaluation along with the nurse practitioner. This evaluation was done and 35 minutes. In summary, this is a 54-year-old male patient, diabetic along with known history of hypertension hyp erlipidemia. The patient was taken nonsteroidal anti-inflammatory medications for shoulder pain. The patient is also on VICTOR M inhibitor's and metformin. 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 He is also drinking alcohol approximately 3 glasses of whiskey on a daily basis. The patient presented with acute kidney injury. Creatinine was quite elevated at the time of admission and the patient had a component of metabolic acidosis. Initial creatinine level was at 12.6. The serum bicarb level was 15 and the patient had a gap of 24. The patient was started on a bicarb infusion. The patient was also resuscitated with IV fluids. The patient has received a total of 4 L of normal saline and the patient is currently on bicarb infusion at rate of 125 cc an hour. Urine output is noted of 1.4 L over the past 8 hours. The patient remains on low-dose norepinephrine at 0.07 mcg/kg/min. Will start the patient on oral Protonix. Will put the patient on subcu heparin for DVT prophylaxis. Will also add Lantus 10 units for a tight blood sugar control in combination with insulin sliding scale coverage. Nephrology on the case. CAT scan of the abdomen shows no evidence of any hydronephrosis. All nephrotoxic agents have been discontinued. The patient will be monitored in the ICU. Currently on room air oxygen. No altered mentation. No shortness of breath. Time with Patient: Greater than 30
[2025-05-02 03:56] LABS: HCT 32.2 % (39.6-50.0); HGB 10.7 g/dL (13.0-17.0); MCH 32.5 pg (27.0-32.0); MCHC 33.2 g/dL (32.0-37.0); MCV 97.9 fL (80.0-97.0); Platelet Count 183 10*3/uL (140-440); RBC 3.29 10*6/uL (4.40-5.60); RDW 11.6 % (11.5-14.5); WBC 10.55 10*3/uL (4.50-10.00)
[2025-05-02 04:21] LABS: African American GFR (CKD) 7 (>60 ml/min/1.73 sqM); Anion Gap 17 mmol/L; Blood Urea Nitrogen 89 mg/dL (9-20); Calcium 8.8 mg/dL (8.4-10.2); Carbon Dioxide 18 mmol/L (22-30); Chloride 100 mmol/L (98-107); Glucose 226 mg/dL (74-99); Non-African American GFR(CKD) 6 (>60 ml/min/1.73 sqM); Potassium 4.4 mmol/L (3.5-5.1); Sodium 135 mmol/L (137-145)
[2025-05-02 06:33] LABS: Glucose,Whole Blood 215 mg/dL (70-110)
[2025-05-02] MEDS: INSULIN LISPRO (HumaLOG) 100 UNIT/ML 10 mL VL SQ SCH (06:40)
[2025-05-02] MEDS: ATORVASTATIN 20 MG TAB PO SCH (08:49)
[2025-05-02] MEDS ORDERED: DAPAGLIFLOZIN PROPANEDIOL 5 MG TABLET PO SCH (09:00)
[2025-05-02] MEDS ORDERED: metFORMIN 500 MG TAB PO SCH (09:00)
--- NOTE | 2025-05-02 10:31 | P.NPCON ---
History of Present Illness - Reason for Consult acute renal failure - History of Present Illness Reason for consultation: Acute kidney injury History of present illness: Patient is a 54-year-old male seen in renal consultation for acute kidney injury. Patient's creatinine in July 2024 was 1.1 and elevated at 13.2 this admission. Potassium was elevated at 6.1. Patient came to the hospital due to dizziness and weakness. He was also having lower abdominal pain. 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 He also admits to drinking more than a pint of liquor daily. Additionally he was on metformin, lisinopril, Jardiance. He was also taking ibuprofen every 4 hours for the last month or so. Patient states he went to an urgent care and had a CT scan as well as labs done. He was subsequently advised to come to the hospital. He did receive 3 L of IV fluids and is currently maintained on bicarb drip. Urine output overnight was 1.4 L. He does not have a Javier catheter. Patient has history of diabetes. Denies history of coronary artery disease. Denies fever or chills. No hematuria or dysuria. Vital signs are stable. General: No acute distress. HEENT: Head exam is unremarkable. LUNGS: No audible rhonchi or wheezes. HEART: Rate and Rhythm are regular. ABDOMEN: Non-tender. EXTREMITITES: No edema. Past Medical History Past Medical History: Diabetes Mellitus, Hyperlipidemia, Hypertension Additional Past Medical History / Comment(s): ETOH History of Any Multi-Drug Resistant Organisms: None Reported Past Surgical History: Hernia Repair Additional Past Surgical History / Comment(s): Urology procedure. Past Anesthesia/Blood Transfusion Reactions: No Reported Reaction Past Psychological History: No Psychological Hx Reported Smoking Status: Former smoker Past Alcohol Use History: Daily Additional Past Alcohol Use History / Comment(s): Quit smoking 15 yrs ago. 2 alcoholic drinks daily. Past Drug Use History: None Reported - Past Family History Father Family Medical History: Cancer Additional Family Medical History / Comment(s): Throat cancer. Medications and Allergies Home Medications Medication Instructions Recorded Confirmed Type Atorvastatin [Lipitor] 20 mg PO DAILY 05/01/25 05/01/25 History Empagliflozin [Jardiance] 10 mg PO DAILY 05/01/25 05/01/25 History lisinopriL [Zestril] 20 mg PO DAILY 05/01/25 05/01/25 History metFORMIN HCL 500 mg PO DAILY 05/01/25 05/01/25 History Allergies Allergy/AdvReac Type Severity Reaction Status Date / Time No Known Allergies Allergy Verified 05/01/25 16:48 Physical Exam Vitals: Vital Signs Temp Pulse Resp BP BP Pulse Ox 05/02/25 10:00 64 20 110/67 97 05/02/25 09:45 74 18 101/64 96 05/02/25 09:30 72 30 H 100/63 96 05/02/25 09:15 72 18 100/75 96 05/02/25 09:00 76 20 102/62 96 05/02/25 08:45 107/59 05/02/25 08:30 80 19 107/59 94 L 05/02/25 08:15 98 16 98/53 95 05/02/25 08:00 98.3 F 82 20 101/55 95 05/02/25 07:45 70 16 104/50 94 L 05/02/25 07:30 79 10 L 115/62 96 05/02/25 07:15 18 109/57 96 05/02/25 07:00 60 16 101/58 96 05/02/25 06:45 73 12 117/64 95 05/02/25 06:30 67 13 106/59 95 05/02/25 06:15 71 12 97/47 94 L 05/02/25 06:00 68 14 113/47 97 05/02/25 05:45 58 L 14 93/53 96 05/02/25 05:30 66 15 95/46 96 05/02/25 05:15 68 14 92/47 95 05/02/25 05:00 66 14 90/50 96 05/02/25 04:45 73 14 91/47 94 L 05/02/25 04:30 70 13 85/48 94 L 05/02/25 04:15 72 11 L 79/44 96 05/02/25 04:00 98.5 F 70 12 84/48 95 05/02/25 03:45 69 14 101/52 95 05/02/25 03:30 67 20 92/49 95 05/02/25 03:15 73 19 99/50 95 05/02/25 03:00 70 14 101/60 94 L 05/02/25 02:45 84 20 92/51 93 L 05/02/25 02:30 68 14 93/52 95 05/02/25 02:15 69 15 102/60 95 05/02/25 02:00 79 15 87/49 96 05/02/25 01:45 74 14 88/51 95 05/02/25 01:30 78 14 95/51 93 L 05/02/25 01:15 80 16 95/51 94 L 05/02/25 01:00 76 13 93/50 94 L 05/02/25 00:45 79 15 80/47 92 L 05/02/25 00:30 82 15 99/49 93 L 05/02/25 00:20 82 18 99/49 94 L 05/02/25 00:00 98.1 F 104 H 14 94/44 92 L 05/01/25 23:00 87 16 107/68 96 05/01/25 22:00 89 18 85/54 96 05/01/25 21:23 98.4 F 16 85/54 96 05/01/25 21:06 101/62 05/01/25 21:04 120/71 05/01/25 20:56 76/53 05/01/25 19:37 94 18 85/47 96 05/01/25 19:01 92 16 87/57 97 05/01/25 17:20 93 18 81/56 96 05/01/25 16:52 86 05/01/25 16:40 88 05/01/25 16:09 90 18 81/49 98 05/01/25 15:41 100 18 77/44 100 05/01/25 14:36 98.1 F 97 20 82/53 98 Intake and Output 05/01/25 05/02/25 05/02/25 22:59 06:59 14:59 Intake Total 705 1071.287 747.714 Output Total 1450 Balance 705 -378.713 747.714 Intake: IV 125 1000 500 Dextrose 5% in Water 1, 125 1000 500 000 ml @ 125 mls/hr IV . Q9H12M LANDON with Sodium Bicarb (1 Meq/ml) 150 ml Rx#:[id number] Intake, IV Titration 71.287 67.714 Amount Norepinephrine 8 mg In 71.287 67.714 Sodium Chloride 0.9% 250 ml @ 0.03 MCG/KG/MIN 5. 108 mls/hr IV .Q24H LANDON Rx#:[id number] Oral 580 180 Output: Urine 1450 Other: Voiding Method Urinal Urinal # Voids 1 # Bowel Movements 1 Weight 87.997 kg 89.6 kg Results - Lab Results Most recent lab results Calcium 8.8 mg/dL (8.4-10.2) 05/02/25 03:09 Magnesium 2.6 mg/dL (1.6-2.3) H 05/01/25 15:05 05/02/25 03:09 05/02/25 03:09 Assessment and Plan Plan: Assessment: 1. Acute kidney injury secondary to ATN secondary to hypotension, further worsened with the use of VICTOR M inhibitor, SGLT2 inhibitor and NSAIDs. Creatinine 12.7 on admission and is 9.02 today. Creatinine 1.1 in July 2024. No hydronephrosis noted on CT. 2. Hyperkalemia secondary to acute kidney injury, acidosis and lisinopril. Improved with medical management. 3. Metabolic acidosis secondary to acute kidney injury, metformin. Better with bicarb drip. 4. Diabetes mellitus. 5. Hypovolemic shock maintained on Levophed. Plan: Maintain bicarb drip. Wean Levophed. Continue to hold all antihypertensives. Avoid nephrotoxins. Continue to monitor renal function and urine output. Thank you for the consultation. I will continue to follow the patient with you during his hospital stay.
[2025-05-02] MEDS: INSULIN GLARGINE (LANTUS) 100 UNIT/ML SYR SQ ONE (10:47)
[2025-05-02 11:37] LABS: Glucose,Whole Blood 208 mg/dL (70-110)
[2025-05-02] MEDS: PANTOPRAZOLE 40 MG TABLET PO SCH (11:39)
[2025-05-02 11:54] VITALS: BMI 33.9
[2025-05-02 16:53] LABS: Glucose,Whole Blood 128 mg/dL (70-110)
[2025-05-02 20:27] LABS: Glucose,Whole Blood 152 mg/dL (70-110)
[2025-05-02] MEDS: HEPARIN SODIUM,PORCINE 5,000 UNIT/ML 1 ML VIAL SQ SCH (20:43)
[2025-05-03 03:04] LABS: HCT 32.5 % (39.6-50.0); HGB 10.7 g/dL (13.0-17.0); MCH 31.5 pg (27.0-32.0); MCHC 32.9 g/dL (32.0-37.0); MCV 95.6 fL (80.0-97.0); Platelet Count 149 10*3/uL (140-440); RBC 3.40 10*6/uL (4.40-5.60); RDW 11.7 % (11.5-14.5); WBC 6.42 10*3/uL (4.50-10.00)
[2025-05-03 03:22] LABS: African American GFR (CKD) 41 (>60 ml/min/1.73 sqM); Anion Gap 9 mmol/L; Blood Urea Nitrogen 65 mg/dL (9-20); Calcium 8.3 mg/dL (8.4-10.2); Carbon Dioxide 33 mmol/L (22-30); Chloride 99 mmol/L (98-107); Glucose 138 mg/dL (74-99); Magnesium 1.9 mg/dL (1.6-2.3); Non-African American GFR(CKD) 36 (>60 ml/min/1.73 sqM); Potassium 4.3 mmol/L (3.5-5.1); Sodium 141 mmol/L (137-145)
[2025-05-03 05:59] LABS: Glucose,Whole Blood 152 mg/dL (70-110)
[2025-05-03] MEDS: INSULIN GLARGINE (LANTUS) 100 UNIT/ML SYR SQ SCH (06:15)
[2025-05-03] MEDS: ACETAMINOPHEN TAB 325 MG TAB PO PRN (07:56)
[2025-05-03] MEDS: SODIUM CHLORIDE 0.9% 1,000 ML IV SCH (09:54)
--- NOTE | 2025-05-03 11:28 | P.PN ---
Subjective Patient is seen for follow-up for acute kidney injury. Renal function has improved significantly with serum creatinine down from 13.2 on admission to 2.0 today. Patient has had good urine output. No significant complaints today Maintained on IV fluids. Objective - Vital Signs Vital signs: Vital Signs Temp 98.3 F 05/03/25 08:00 Pulse 71 05/03/25 09:00 Resp 13 05/03/25 09:00 BP 100/62 05/03/25 10:44 Pulse Ox 95 05/03/25 09:00 FiO2 Intake & Output 05/02/25 05/03/25 05/03/25 18:59 06:59 18:59 Intake Total 8183.614 7676 1025 Output Total 1580 1400 380 Balance 215.447 710 645 Weight 89.6 kg 88.9 kg Intake: IV 1500 1500 475 Dextrose 5% in Water 1, 1500 1500 375 000 ml @ 125 mls/hr IV . Q9H12M L[place]ON with Sodium Bicarb (1 Meq/ml) 150 ml Rx#:[id number] Sodium Chloride 0.9% 1, 100 000 ml @ 100 mls/hr IV . Q10H LANDON Rx#:[id number] Intake, IV Titration 115.447 Amount Norepinephrine 8 mg In 115.447 Sodium Chloride 0.9% 250 ml @ 0.03 MCG/KG/MIN 5. 108 mls/hr IV .Q24H LANDON Rx#:[id number] Oral 180 580 520 Other 30 30 Output: Urine 1580 1400 380 Stool 0 Other: Voiding Method Urinal Urinal Urinal # Voids 1 # Bowel Movements 1 0 - Exam Patient is awake and comfortable, no acute distress Alert oriented x 3 Examination of the heart S1 and S2 Examination of the lungs bilateral breath sounds are heard Abdomen is soft nontender Examination of lower extremities shows no evidence of edema [employer] exam grossly intact - Labs CBC & Chem 7: 05/03/25 02:41 05/03/25 02:41 Labs: Abnormal Lab Results - Last 24 Hours (Table) 05/02/25 05/02/25 05/02/25 Range/Units 11:36 16:52 20:26 RBC (4.40-5.60) 10*6/uL Hgb (13.0-17.0) g/dL Hct (39.6-50.0) % Carbon Dioxide (22-30) mmol/L BUN (9-20) mg/dL Creatinine (0.66-1.25) mg/dL Glucose (74-99) mg/dL POC Glucose (mg/dL) 208 H 128 H 152 H (70-110) mg/dL Calcium (8.4-10.2) mg/dL 05/03/25 05/03/25 05/03/25 Range/Units 02:41 02:41 05:57 RBC 3.40 L (4.40-5.60) 10*6/uL Hgb 10.7 L (13.0-17.0) g/dL Hct 32.5 L (39.6-50.0) % Carbon Dioxide 33 H (22-30) mmol/L BUN 65 H (9-20) mg/dL Creatinine 2.04 H (0.66-1.25) mg/dL Glucose 138 H (74-99) mg/dL POC Glucose (mg/dL) 152 H (70-110) mg/dL Calcium 8.3 L (8.4-10.2) mg/dL Microbiology - Last 24 Hours (Table) 05/01/25 16:37 Blood Culture - Preliminary Blood Assessment and Plan Assessment: 1. Acute kidney injury secondary to ATN secondary to hypotension, further worsened with the use of VICTOR M inhibitor, SGLT2 inhibitor and NSAIDs. Creatinine 13.2 on admission and is 2.0 today. Creatinine 1.1 in July 2024. No hydronephrosis noted on CT. 2. Hyperkalemia secondary to acute kidney injury, acidosis and lisinopril. Improved with medical management. 3. Metabolic acidosis secondary to acute kidney injury, metformin. Better with bicarb drip. 4. Diabetes mellitus. 5. Hypovolemic shock status post vasopressors. Plan: Continue with IV fluids. Switch to normal saline. Repeat labs in a.m.
[2025-05-03 11:31] LABS: Glucose,Whole Blood 117 mg/dL (70-110)
--- NOTE | 2025-05-03 12:34 | P.PN ---
Subjective Progress Note Date: 05/03/25 Patient is a 54-year-old male with past medical history significant for hypertension, hyperlipidemia, diabetes mellitus type 2. Also, shoulder injury in October,. Shoulder MRI October, showing partial tear along the head of the biceps tendon near the biceps anchor with tear of the superior ca rtilaginous labrum consistent with a SLAP injury. Also, small intrasubstance tear of the infraspinatus tendon without retraction. Mild shoulder impingement secondary to degenerative changes AC joint and subacromial spur. This has been causing him pain, and has been taking 400 mg of ibuprofen almost every 4 hours while awake since October. Additionally, he takes lisinopril for his hypertension. Metformin and Jardiance for management of his type 2 diabetes. His primary care provider is Dr. Alexander. He presented to a local urgent care center yesterday with abdominal pain over the last 3 days. Also, nausea and vomiting. He was discovered to have abnormal kidney function on his blood work. Directed to our emergency department for evaluation. He was hypotensive and aggressively fluid resuscitated with 3 L of normal saline IV bolus. His creatinine was elevated at 12.76. Also, potassium was 6.1. This was treated with a K cocktail including 10 units of regular insulin, 1 amp of D50 W, 1 g calcium gluconate, concentrated albuterol treatment, and 10 g of Lokelma.. Also, severe metabolic acidosis and started on a sodium bicarb drip. Repeat potassium level down to 5.1. Kidney function has improved marginally. He has voided once since his admission. Labs including a CBC with a WBC count of 13.62, hemoglobin 13.1, platelets 222. Most recent BMP with a sodium 136, potassium 5.1, chloride 104, serum bicarb 13, BUN 87, creatinine 10.79, glucose 153. Magnesium 2.6. Troponin less than 0.012. EKG: Sinus rhythm, rate 91 bpm, no QRS widening or peaked T waves. Lipase 996. Urinalysis not particularly remarkable for infection. He was empirically given a dose of Rocephin. Abdo norah CT done in the emergency department did not show any evidence of hydronephrosis or renal calcifications. No acute intra-abdominal process. Patient currently being evaluated in the intensive care unit. Nontoxic appearance. In no apparent distress. On a low-dose of norepinephrine at 0.03 mcg/kg/min. 3 A of sodium bicarb in D5W infusing at 125 mL/h. Blood pressure currently 107/68 mmHg. Nontachycardic. Afebrile. Denies any dysuria, frequency, hematuria, recent urological procedures. Some right flank tenderness. Denies history of chronic kidney disease. No further nausea or vomiting. Previously, described as mostly water and food products. No diarrhea. Abdominal pain in the suprapubic region. Previously, rated 7 out of 10 and now improved. Denies history of chronic kidney disease. Blood pressures have been reportedly well-managed at home. He does not check his blood sugars daily. On 05/03/2025, the patient is being seen for a follow-up. The patient is doing well. Denies having any specific complaints. Remains on room air oxygen. No respiratory difficulties. No cough sputum production chest tightness or wheezing. No altered mentation. The patient remains on bicarb infusion at rate of 125 cc an hour. Urine output is noted of 1.5 L over the past 12 hours. The patient was taken off pressors as of 6 PM yesterday. There is improvement in renal function and patient's white cell count is at 6.4 with a hemoglobin 10.7. BUN 65 with a creatinine of 2.04 and a potassium level is at 4.3. Remains on 10 Lantus insulin 10 units daily along with sliding scale insulin coverage. IV fluids will be switched to normal saline and the patient will be taken off the bicarb infusion. Objective - Vital Signs Vital signs: Vital Signs Temp 98.3 F 05/03/25 08:00 Pulse 71 05/03/25 09:00 Resp 13 05/03/25 09:00 BP 93/73 05/03/25 09:00 Pulse Ox 95 05/03/25 09:00 FiO2 Intake & Output 05/02/25 05/03/25 05/03/25 18:59 06:59 18:59 Intake Total 0584.718 0995 925 Output Total 1580 1400 380 Balance 215.447 710 545 Weight 89.6 kg 88.9 kg Intake: IV 1500 1500 375 Dextrose 5% in Water 1, 1500 1500 375 000 ml @ 125 mls/hr IV . Q9H12M LANDON with Sodium Bicarb (1 Meq/ml) 150 ml Rx#:[id number] Intake, IV Titration 115.447 Amount Norepinephrine 8 mg In 115.447 Sodium Chloride 0.9% 250 ml @ 0.03 MCG/KG/MIN 5. 108 mls/hr IV .Q24H LANDON Rx#:[id number] Oral 180 580 520 Other 30 30 Output: Urine 1580 1400 380 Stool 0 Other: Voiding Method Urinal Urinal Urinal # Voids 1 # Bowel Movements 1 0 - Exam GENERAL EXAM: Alert, 54-year-old obese male, nontoxic appearance, comfortable in no apparent distress. HEAD: Normocephalic and atraumatic EYES: Normal reaction of pupils, equal size. NOSE: Clear with pink turbinates. THROAT: No erythema or exudates. NECK: No masses, no JVD. CHEST: No chest wall deformity. LUNGS: Equal air entry with no crackles, wheeze, rhonchi or dullness. On on room air. No conversational dyspnea or accessory muscle use.. CVS: S1 and S2 normal with no audible murmur, regular rhythm. No extra heart sounds ABDOMEN: No hepatosplenomegaly, active bowel sounds, no guarding or rigidity. SPINE: No scoliosis or deformity. Technically positive right CVA tenderness SKIN: No rashes CENTRAL NERVOUS SYSTEM: No focal deficits, tone is normal in all 4 extremities. EXTREMITIES: There is no peripheral edema, clubbing, or cyanosis. Peripheral pulses are intact. - Labs CBC & Chem 7: 05/03/25 02:41 05/03/25 02:41 Labs: Abnormal Lab Results - Last 24 Hours (Table) 05/02/25 05/02/25 05/02/25 Range/Units 11:36 16:52 20:26 RBC (4.40-5.60) 10*6/uL Hgb (13.0-17.0) g/dL Hct (39.6-50.0) % Carbon Dioxide (22-30) mmol/L BUN (9-20) mg/dL Creatinine (0.66-1.25) mg/dL Glucose (74-99) mg/dL POC Glucose (mg/dL) 208 H 128 H 152 H (70-110) mg/dL Calcium (8.4-10.2) mg/dL 05/03/25 05/03/25 05/03/25 Range/Units 02:41 02:41 05:57 RBC 3.40 L (4.40-5.60) 10*6/uL Hgb 10.7 L (13.0-17.0) g/dL Hct 32.5 L (39.6-50.0) % Carbon Dioxide 33 H (22-30) mmol/L BUN 65 H (9-20) mg/dL Creatinine 2.04 H (0.66-1.25) mg/dL Glucose 138 H (74-99) mg/dL POC Glucose (mg/dL) 152 H (70-110) mg/dL Calcium 8.3 L (8.4-10.2) mg/dL Microbiology - Last 24 Hours (Table) 05/01/25 16:37 Blood Culture - Preliminary Blood Assessment and Plan Assessment: Acute kidney injury, patient has been taking NSAIDs [id number], as well as, his lisinopril. All of those medications have been discontinued and the patient was assisted to IV fluids and there is ongoing improvement in renal function. Improving the urine output and the creatinine is down to 2.0. Hypotension, refractory to fluid resuscitation, currently o off pressors Acute anion gap metabolic acidosis, recovered in the patient's bicarb deficit has been replaced Severe hyperkalemia, secondary to above, with covered Abdominal pain, CT abdomen pelvis did not show any acute intra-abdominal process. No renal calculi or hydronephrosis. Elevated lipase, 996 Acute leukocytosis, received empiric dose of Rocephin in the ED Right shoulder injury, Shoulder MRI October, showing partial tear along the head of the biceps tendon near the biceps anchor with tear of the superior cartilaginous labrum consistent with a SLAP injury. Also, small intrasubstance tear of the infraspinatus tendon without retraction. Mild shoulder impingement secondary to degenerative changes AC joint and subacromial spur. This has been causing him pain, and has been taking 400 mg of ibuprofen almost every 4 hours while awake since October. History of hypertension, maintained on lisinopril Diabetes mellitus type 2, normally maintained on metformin and Jardiance Obesity, with a BMI of 33.3 kg/m Plan: Patient currently on room air oxygen Renal function continues to improve Potassium level is normal and the metabolic acidosis recovered Discontinue the bicarb infusion and put the patient on normal saline at rate of 100 cc an hour Continue Lantus insulin Continue sliding scale insulin coverage Avoid nephrotoxic agents Patient is currently off pressors The patient can be transferred to medical surgical floor. Time with Patient: Greater than 30
[2025-05-03 16:32] LABS: Glucose,Whole Blood 102 mg/dL (70-110)
[2025-05-03 20:42] LABS: Glucose,Whole Blood 225 mg/dL (70-110)
[2025-05-04 06:09] LABS: Glucose,Whole Blood 132 mg/dL (70-110)
[2025-05-04 08:12] VITALS: BP 97/55; PULSE 77; RESP 15; TEMP 97.6
--- NOTE | 2025-05-04 10:47 | P.PN ---
Subjective Patient is seen for follow-up for acute kidney injury. Renal function has improved significantly with serum creatinine down from 13.2 on admission to 2.0 yesterday Patient has had good urine output. No significant complaints today Maintained on IV fluids. Objective - Vital Signs Vital signs: Vital Signs Temp 97.6 F 05/04/25 07:20 Pulse 77 05/04/25 07:20 Resp 15 05/04/25 07:20 BP 97/55 05/04/25 07:20 Pulse Ox 93 L 05/04/25 07:20 FiO2 Intake & Output 05/03/25 05/04/25 05/04/25 18:59 06:59 18:59 Intake Total 2165 200 Output Total 380 Balance 1785 200 Intake: IV 475 Dextrose 5% in Water 1, 375 000 ml @ 125 mls/hr IV . Q9H12M LANDON with Sodium Bicarb (1 Meq/ml) 150 ml Rx#:[id number] Sodium Chloride 0.9% 1, 100 000 ml @ 100 mls/hr IV . Q10H LANDON Rx#:[id number] Oral 1660 200 Other 30 Output: Urine 380 Stool 0 Other: Voiding Method Urinal Toilet # Voids 3 1 # Bowel Movements 1 - Exam Patient is awake and comfortable, no acute distress Alert oriented x 3 Examination of the heart S1 and S2 Examination of the lungs bilateral breath sounds are heard Abdomen is soft nontender Examination of lower extremities shows no evidence of edema PRINTER'S ASSISTANT exam grossly intact - Labs CBC & Chem 7: 05/03/25 02:41 05/03/25 02:41 Labs: Abnormal Lab Results - Last 24 Hours (Table) 05/03/25 05/03/25 05/04/25 Range/Units 11:30 20:40 06:07 POC Glucose (mg/dL) 117 H 225 H 132 H (70-110) mg/dL Microbiology - Last 24 Hours (Table) 05/01/25 16:37 Blood Culture - Preliminary Blood Assessment and Plan Assessment: 1. Acute kidney injury secondary to ATN secondary to hypotension, further worsened with the use of VICTOR M inhibitor, SGLT2 inhibitor and NSAIDs. Creatinine 13.2 on admission and is 2.0 yesterday. Creatinine 1.1 in July 2024. No hydronephrosis noted on CT. 2. Hyperkalemia secondary to acute kidney injury, acidosis and lisinopril. Improved with medical management. 3. Metabolic acidosis secondary to acute kidney injury, metformin. Better with bicarb drip. 4. Diabetes mellitus. 5. Hypovolemic shock status post vasopressors. Plan: Stable for discharge from nephrology standpoint. DC IV fluids upon discharge. Repeat labs as outpatient in about 1 week's time
[2025-05-04 11:34] LABS: Glucose,Whole Blood 129 mg/dL (70-110)
--- NOTE | 2025-05-04 11:51 | P.HPIM ---
History of Present Illness H&P Date: 05/02/25 54-year-old male with history including hypertension, hyperlipidemia, DM and urology procedure presenting for abnormal lab work discovered earlier today. Patient states he went to urgent care due to his lower abdominal pain (7/10) occurring for the past 3 days. Patient states urgent care ordered lab work to assess kidney function prior to CT order when it was discovered his creatinine was 13.7 and patient was sent to ER. Patient endorses associated dizziness/lightheadedness that worsens with positional change, nausea/vomiting and increased fatigue starting around the same time as his lower abdominal pain. Denies fever, chills, chest pain, dyspnea, hematemesis, melena, hematochezia, dysuria, hematuria. His creatinine was elevated at 12.76. Also, potassium was 6.1. This was treated with a K cocktail including 10 units of regular insulin, 1 amp of D50 W, 1 g calcium gluconate, concentrated albuterol treatment, and 10 g of Lokelma.. Also, severe metabolic acidosis and started on a sodium bicarb drip. Repeat potassium level down to 5.1. Kidney function has improved marginally. He has voided once since his admission. Labs including a CBC with a WBC count of 13.62, hemoglobin 13.1, platelets 222. Most recent BMP with a sodium 136, potassium 5.1, chloride 104, serum bicarb 13, BUN 87, creatinine 10.79, glucose 153. Magnesium 2.6. Troponin less than 0.012. EKG: Sinus rhythm, rate 91 bpm, no QRS widening or peaked T waves. Lipase 996. Urinalysis not particularly remarkable for infection. He was empirically given a dose of Rocephin. Abdominal CT done in the emergency department did not show any evidence of hydronephrosis or renal calcifications. No acute intra-abdominal process. Review of Systems REVIEW OF SYSTEMS: CONSTITUTIONAL: No fever, no malaise, no fatigue. HEENT: No recent visual problems or hearing problems. Denied any sore throat. CARDIOVASCULAR: No chest pain, orthopnea, PND, no palpitations, no syncope. PULMONARY: No shortness of breath, no cough, no hemoptysis. GASTROINTESTINAL: No diarrhea, no nausea, no vomiting, no abdominal pain. NEUROLOGICAL: No headaches, no weakness, no numbness. HEMATOLOGICAL: Denies any bleeding or petechiae. GENITOURINARY: Denies any burning micturition, frequency, or urgency. MUSCULOSKELETAL/RHEUMATOLOGICAL: Denies any joint pain, swelling, or any muscle pain. ENDOCRINE: Denies any polyuria or polydipsia. The rest of the 14-point review of systems is negative. Past Medical History Past Medical History: Diabetes Mellitus, Hyperlipidemia, Hypertension Additional Past Medical History / Comment(s): ETOH History of Any Multi-Drug Resistant Organisms: None Reported Past Surgical History: Hernia Repair Additional Past Surgical History / Comment(s): Urology procedure. Past Anesthesia/Blood Transfusion Reactions: No Reported Reaction Past Psychological History: No Psychological Hx Reported Smoking Status: Former smoker Past Alcohol Use History: Daily Additional Past Alcohol Use History / Comment(s): Quit smoking 15 yrs ago. 2 alcoholic drinks daily. Past Drug Use History: None Reported - Past Family History Father Family Medical History: Cancer Additional Family Medical History / Comment(s): Throat cancer. Medications and Allergies Home Medications Medication Instructions Recorded Confirmed Type Atorvastatin [Lipitor] 20 mg PO DAILY 05/01/25 05/01/25 History metFORMIN HCL 500 mg PO DAILY 05/01/25 05/01/25 History Allergies Allergy/AdvReac Type Severity Reaction Status Date / Time No Known Allergies Allergy Verified 05/01/25 16:48 Physical Exam Vitals: Vital Signs Temp Pulse Resp BP BP Pulse Ox 05/02/25 10:00 64 20 110/67 97 05/02/25 09:45 74 18 101/64 96 05/02/25 09:30 72 30 H 100/63 96 05/02/25 09:15 72 18 100/75 96 05/02/25 09:00 76 20 102/62 96 05/02/25 08:45 107/59 05/02/25 08:30 80 19 107/59 94 L 05/02/25 08:15 98 16 98/53 95 05/02/25 08:00 98.3 F 82 20 101/55 95 05/02/25 07:45 70 16 104/50 94 L 05/02/25 07:30 79 10 L 115/62 96 05/02/25 07:15 18 109/57 96 05/02/25 07:00 60 16 101/58 96 05/02/25 06:45 73 12 117/64 95 05/02/25 06:30 67 13 106/59 95 05/02/25 06:15 71 12 97/47 94 L 05/02/25 06:00 68 14 113/47 97 05/02/25 05:45 58 L 14 93/53 96 05/02/25 05:30 66 15 95/46 96 05/02/25 05:15 68 14 92/47 95 05/02/25 05:00 66 14 90/50 96 05/02/25 04:45 73 14 91/47 94 L 05/02/25 04:30 70 13 85/48 94 L 05/02/25 04:15 72 11 L 79/44 96 05/02/25 04:00 98.5 F 70 12 84/48 95 05/02/25 03:45 69 14 101/52 95 05/02/25 03:30 67 20 92/49 95 05/02/25 03:15 73 19 99/50 95 05/02/25 03:00 70 14 101/60 94 L 05/02/25 02:45 84 20 92/51 93 L 05/02/25 02:30 68 14 93/52 95 05/02/25 02:15 69 15 102/60 95 05/02/25 02:00 79 15 87/49 96 05/02/25 01:45 74 14 88/51 95 05/02/25 01:30 78 14 95/51 93 L 05/02/25 01:15 80 16 95/51 94 L 05/02/25 01:00 76 13 93/50 94 L 05/02/25 00:45 79 15 80/47 92 L 05/02/25 00:30 82 15 99/49 93 L 05/02/25 00:20 82 18 99/49 94 L 05/02/25 00:00 98.1 F 104 H 14 94/44 92 L 05/01/25 23:00 87 16 107/68 96 05/01/25 22:00 89 18 85/54 96 05/01/25 21:23 98.4 F 16 85/54 96 05/01/25 21:06 101/62 05/01/25 21:04 120/71 05/01/25 20:56 76/53 05/01/25 19:37 94 18 85/47 96 05/01/25 19:01 92 16 87/57 97 05/01/25 17:20 93 18 81/56 96 05/01/25 16:52 86 05/01/25 16:40 88 05/01/25 16:09 90 18 81/49 98 05/01/25 15:41 100 18 77/44 100 05/01/25 14:36 98.1 F 97 20 82/53 98 Intake and Output 05/01/25 05/02/25 05/02/25 22:59 06:59 14:59 Intake Total 705 1071.287 747.714 Output Total 1450 Balance 705 -378.713 747.714 Intake: IV 125 1000 500 Dextrose 5% in Water 1, 125 1000 500 000 ml @ 125 mls/hr IV . Q9H12M LANDON with Sodium Bicarb (1 Meq/ml) 150 ml Rx#:[id number] Intake, IV Titration 71.287 67.714 Amount Norepinephrine 8 mg In 71.287 67.714 Sodium Chloride 0.9% 250 ml @ 0.03 MCG/KG/MIN 5. 108 mls/hr IV .Q24H LANDON Rx#:[id number] Oral 580 180 Output: Urine 1450 Other: Voiding Method Urinal Urinal # Voids 1 # Bowel Movements 1 Weight 87.997 kg 89.6 kg General appearance: alert, in no apparent distress Head exam: Present: atraumatic, normocephalic, normal inspection Eye exam: Present: normal appearance, PERRL, EOMI. Absent: scleral icterus, conjunctival injection, periorbital swelling ENT exam: Present: normal exam, mucous membranes moist Neck exam: Present: normal inspection. Absent: tenderness, meningismus, lymphadenopathy Respiratory exam: Present: normal lung sounds bilaterally. Absent: respiratory distress, wheezes, rales, rhonchi, stridor Cardiovascular Exam: Present: regular rate, normal rhythm, normal heart sounds. Absent: systolic murmur, diastolic murmur, rubs, gallop, clicks GI/Abdominal exam: Present: soft, distended, tenderness (Positive RLQ, epigastric and LLQ TTP. Positive McBurney point and Rovsing sign. Negative Brantley sign.), diminished bowel sounds, hypoactive bowel sounds. Absent: guarding, rebound, rigid Extremities exam: Present: normal inspection, full ROM, normal capillary refill. Absent: tenderness, pedal edema, joint swelling, calf tenderness Back exam: Present: normal inspection Neurological exam: Present: alert, oriented X3, CN II-XII intact Psychiatric exam: Present: normal affect, normal mood Skin exam: Present: warm, dry, intact, normal color. Absent: rash Results CBC & Chem 7: 05/03/25 02:41 05/03/25 02:41 Labs: Abnormal Lab Results - Last 24 Hours (Table) 05/01/25 05/01/25 05/01/25 Range/Units 15:05 15:05 15:05 WBC 13.62 H (4.50-10.00) 10*3/uL RBC 4.05 L (4.40-5.60) 10*6/uL Hgb (13.0-17.0) g/dL Hct 39.3 L (39.6-50.0) % MCV (80.0-97.0) fL MCH 32.3 H (27.0-32.0) pg Immature Gran # 0.07 H (0.00-0.04) 10*3/uL Neutrophils # 9.43 H (1.80-7.70) 10*3/uL Monocytes # 1.42 H (0.20-1.00) 10*3/uL APTT 20.1 L (22.0-30.0) sec Sodium 134 L (137-145) mmol/L Potassium 6.1 H* (3.5-5.1) mmol/L Chloride 95 L (98-107) mmol/L Carbon Dioxide 15 L (22-30) mmol/L BUN 90 H (9-20) mg/dL Creatinine 12.76 H* (0.66-1.25) mg/dL Glucose 144 H (74-99) mg/dL POC Glucose (mg/dL) (70-110) mg/dL Hemoglobin A1c (<=6.0) % Calcium 10.3 H (8.4-10.2) mg/dL Magnesium 2.6 H (1.6-2.3) mg/dL Lipase (23-300) U/L Urine Protein (Negative) Urine Glucose (UA) (Negative) Urine Blood (Negative) Urine Bilirubin (Negative) Urine WBC (0-5) /hpf Urine Bacteria (None) /hpf Hyaline Casts (0-2) /lpf Urine Mucus (None) /hpf 05/01/25 05/01/25 05/01/25 Range/Units 15:05 19:46 20:45 WBC (4.50-10.00) 10*3/uL RBC (4.40-5.60) 10*6/uL Hgb (13.0-17.0) g/dL Hct (39.6-50.0) % MCV (80.0-97.0) fL MCH (27.0-32.0) pg Immature Gran # (0.00-0.04) 10*3/uL Neutrophils # (1.80-7.70) 10*3/uL Monocytes # (0.20-1.00) 10*3/uL APTT (22.0-30.0) sec Sodium 136 L (137-145) mmol/L Potassium (3.5-5.1) mmol/L Chloride (98-107) mmol/L Carbon Dioxide 13 L (22-30) mmol/L BUN 87 H (9-20) mg/dL Creatinine 10.79 H* (0.66-1.25) mg/dL Glucose 153 H (74-99) mg/dL POC Glucose (mg/dL) (70-110) mg/dL Hemoglobin A1c (<=6.0) % Calcium (8.4-10.2) mg/dL Magnesium (1.6-2.3) mg/dL Lipase 996 H (23-300) U/L Urine Protein 1+ H (Negative) Urine Glucose (UA) 3+ H (Negative) Urine Blood Small H (Negative) Urine Bilirubin 1+ H (Negative) Urine WBC 8 H (0-5) /hpf Urine Bacteria Rare H (None) /hpf Hyaline Casts 183 H (0-2) /lpf Urine Mucus Occasional H (None) /hpf 05/01/25 05/02/25 05/02/25 Range/Units 21:37 03:09 03:09 WBC 10.55 H (4.50-10.00) 10*3/uL RBC 3.29 L (4.40-5.60) 10*6/uL Hgb 10.7 L (13.0-17.0) g/dL Hct 32.2 L (39.6-50.0) % MCV 97.9 H (80.0-97.0) fL MCH 32.5 H (27.0-32.0) pg Immature Gran # (0.00-0.04) 10*3/uL Neutrophils # (1.80-7.70) 10*3/uL Monocytes # (0.20-1.00) 10*3/uL APTT (22.0-30.0) sec Sodium 135 L (137-145) mmol/L Potassium (3.5-5.1) mmol/L Chloride (98-107) mmol/L Carbon Dioxide 18 L (22-30) mmol/L BUN 89 H (9-20) mg/dL Creatinine 9.02 H* (0.66-1.25) mg/dL Glucose 226 H (74-99) mg/dL POC Glucose (mg/dL) 190 H (70-110) mg/dL Hemoglobin A1c (<=6.0) % Calcium (8.4-10.2) mg/dL Magnesium (1.6-2.3) mg/dL Lipase (23-300) U/L Urine Protein (Negative) Urine Glucose (UA) (Negative) Urine Blood (Negative) Urine Bilirubin (Negative) Urine WBC (0-5) /hpf Urine Bacteria (None) /hpf Hyaline Casts (0-2) /lpf Urine Mucus (None) /hpf 05/02/25 05/02/25 Range/Units 03:09 06:32 WBC (4.50-10.00) 10*3/uL RBC (4.40-5.60) 10*6/uL Hgb (13.0-17.0) g/dL Hct (39.6-50.0) % MCV (80.0-97.0) fL MCH (27.0-32.0) pg Immature Gran # (0.00-0.04) 10*3/uL Neutrophils # (1.80-7.70) 10*3/uL Monocytes # (0.20-1.00) 10*3/uL APTT (22.0-30.0) sec Sodium (137-145) mmol/L Potassium (3.5-5.1) mmol/L Chloride (98-107) mmol/L Carbon Dioxide (22-30) mmol/L BUN (9-20) mg/dL Creatinine (0.66-1.25) mg/dL Glucose (74-99) mg/dL POC Glucose (mg/dL) 215 H (70-110) mg/dL Hemoglobin A1c 6.9 H (<=6.0) % Calcium (8.4-10.2) mg/dL Magnesium (1.6-2.3) mg/dL Lipase (23-300) U/L Urine Protein (Negative) Urine Glucose (UA) (Negative) Urine Blood (Negative) Urine Bilirubin (Negative) Urine WBC (0-5) /hpf Urine Bacteria (None) /hpf Hyaline Casts (0-2) /lpf Urine Mucus (None) /hpf Thrombosis Risk Factor Assmnt - Choose All That Apply Any of the Below Risk Factors Present?: Yes Each Factor Represents 1 point: Age 41-60 years, Obesity (BMI >25) Thrombosis Risk Factor Assessment Total Risk Factor Score: 2 Thrombosis Risk Factor Assessment Level: Low Risk Assessment and Plan Assessment: Acute kidney injury; likely related to NSAID use along with lisinopril, Jard iance and poor oral intake - Lisinopril, Jardiance on hold; patient advised against use of NSAIDs - Remains on IV fluids; monitor renal function electrolytes; strict DORINA's; daily weights; avoid nephrotoxins and hypotension Hyperkalemia; patient has been treated with hyperkalemia cocktail; repeat po tassium level of 5.1; plan to monitor electrolytes closely Metabolic acidosis related to renal injury; currently on sodium bicarbonate infusion at 125 cc/h Hypotension; patient received IV fluid resuscitation in the ED; given persistent hypotension patient was placed on low-dose norepinephrine and is admitted to ICU - Lisinopril has been placed on hold Acute leukocytosis; no obvious source of infection; patient received 1 dose of Rocephin in ED; no further antibiotics recommended at this time History of hypertension; patient takes lisinopril which is currently on hold; monitor blood pressure closely Diabetes mellitus type 2; patient is currently on Jardiance and metformin; we will monitor Accu-Cheks before every meal and at bedtime with insulin sliding scale; Lantus 10 units SQ nightly DVT prophylaxis; SCD CODE STATUS; full code
--- NOTE | 2025-05-04 11:52 | P.PN ---
Subjective Progress Note Date: 05/03/25 54-year-old male with history including hypertension, hyperlipidemia, DM and urology procedure presenting for abnormal lab work discovered earlier today. Patient states he went to urgent care due to his lower abdominal pain (04/24) occurring for the past 3 days. Patient states urgent care ordered lab work to assess kidney function prior to CT order when it was discovered his creatinine was 13.7 and patient was sent to ER. Patient endorses associated dizziness/lightheadedness that worsens with positional change, nausea/vomiting and increased fatigue starting around the same time as his lower abdominal pain. Denies fever, chills, chest pain, dyspnea, hematemesis, melena, hematochezia, dysuria, hematuria. His creatinine was elevated at 12.76. Also, potassium was 6.1. This was treated with a K cocktail including 10 units of regular insulin, 1 amp of D50 W, 1 g calcium gluconate, concentrated albuterol treatment, and 10 g of Lokelma.. Also, severe metabolic acidosis and started on a sodium bicarb drip. Repeat potassium level down to 5.1. Kidney function has improved marginally. He has v oided once since his admission. Labs including a CBC with a WBC count of 13.62, hemoglobin 13.1, platelets 222. Most recent BMP with a sodium 136, potassium 5.1, chloride 104, serum bicarb 13, BUN 87, creatinine 10.79, glucose 153. Magnesium 2.6. Troponin less than 0.012. EKG: Sinus rhythm, rate 91 bpm, no QRS widening or peaked T waves. Lipase 996. Urinalysis not particularly remarkable for infection. He was empirically given a dose of Rocephin. Abdominal CT done in the emergency department did not show any evidence of hydronephrosis or renal calcifications. No acute intra-abdominal process. Objective - Vital Signs Vital signs: Vital Signs Temp 98.3 F 05/03/25 08:00 Pulse 71 05/03/25 09:00 Resp 13 05/03/25 09:00 BP 93/73 05/03/25 09:00 Pulse Ox 95 05/03/25 09:00 FiO2 Intake & Output 05/02/25 05/03/25 05/03/25 18:59 06:59 18:59 Intake Total 1099.832 2975 1025 Output Total 1580 1400 380 Balance 215.447 710 645 Weight 89.6 kg 88.9 kg Intake: IV 1500 1500 475 Dextrose 5% in Water 1, 1500 1500 375 000 ml @ 125 mls/hr IV . Q9H12M LANDON with Sodium Bicarb (1 Meq/ml) 150 ml Rx#:[id number] Sodium Chloride 0.9% 1, 100 000 ml @ 100 mls/hr IV . Q10H LANDON Rx#:[id number] Intake, IV Titration 115.447 Amount Norepinephrine 8 mg In 115.447 Sodium Chloride 0.9% 250 ml @ 0.03 MCG/KG/MIN 5. 108 mls/hr IV .Q24H LANDON Rx#:[id number] Oral 180 580 520 Other 30 30 Output: Urine 1580 1400 380 Stool 0 Other: Voiding Method Urinal Urinal Urinal # Voids 1 # Bowel Movements 1 0 - Exam General appearance: alert, in no apparent distress Head exam: Present: atraumatic, normocephalic, normal inspection Eye exam: Present: normal appearance, PERRL, EOMI. Absent: scleral icterus, conjunctival injection, periorbital swelling ENT exam: Present: normal exam, mucous membranes moist Neck exam: Present: normal inspection. Absent: tenderness, meningismus, lymphadenopathy Respiratory exam: Present: normal lung sounds bilaterally. Absent: respiratory distress, wheezes, rales, rhonchi, stridor Cardiovascular Exam: Present: regular rate, normal rhythm, normal heart sounds. Absent: systolic murmur, diastolic murmur, rubs, gallop, clicks GI/Abdominal exam: Present: soft, distended, tenderness (Positive RLQ, epigastric and LLQ TTP. Positive McBurney point and Rovsing sign. Negative Brantley sign.), diminished bowel sounds, hypoactive bowel sounds. Absent: guarding, rebound, rigid Extremities exam: Present: normal inspection, full ROM, normal capillary refill. Absent: tenderness, pedal edema, joint swelling, calf tenderness Back exam: Present: normal inspection Neurological exam: Present: alert, oriented X3, CN II-XII intact Psychiatric exam: Present: normal affect, normal mood Skin exam: Present: warm, dry, intact, normal color. Absent: rash - Labs CBC & Chem 7: 05/03/25 02:41 05/03/25 02:41 Labs: Abnormal Lab Results - Last 24 Hours (Table) 05/02/25 05/02/25 05/02/25 Range/Units 11:36 16:52 20:26 RBC (4.40-5.60) 10*6/uL Hgb (13.0-17.0) g/dL Hct (39.6-50.0) % Carbon Dioxide (22-30) mmol/L BUN (9-20) mg/dL Creatinine (0.66-1.25) mg/dL Glucose (74-99) mg/dL POC Glucose (mg/dL) 208 H 128 H 152 H (70-110) mg/dL Calcium (8.4-10.2) mg/dL 05/03/25 05/03/25 05/03/25 Range/Units 02:41 02:41 05:57 RBC 3.40 L (4.40-5.60) 10*6/uL Hgb 10.7 L (13.0-17.0) g/dL Hct 32.5 L (39.6-50.0) % Carbon Dioxide 33 H (22-30) mmol/L BUN 65 H (9-20) mg/dL Creatinine 2.04 H (0.66-1.25) mg/dL Glucose 138 H (74-99) mg/dL POC Glucose (mg/dL) 152 H (70-110) mg/dL Calcium 8.3 L (8.4-10.2) mg/dL Microbiology - Last 24 Hours (Table) 05/01/25 16:37 Blood Culture - Preliminary Blood Assessment and Plan Assessment: Acute kidney injury; likely related to NSAID use along with lisinopril, Jardiance and poor oral intake - Lisinopril, Jardiance on hold; patient advised against use of NSAIDs - Remains on IV fluids; monitor renal function electrolytes; strict DORINA's; daily weights; avoid nephrotoxins and hypotension Hyperkalemia; patient has been treated with hyperkalemia cocktail; repeat potassium level of 5.1; plan to monitor electrolytes closely Metabolic acidosis related to renal injury; currently on sodium bicarbonate infusion at 125 cc/h Hypotension; patient received IV fluid resuscitation in the ED; given persistent hypotension patient was placed on low-dose norepinephrine and is admitted to ICU - Lisinopril has been placed on hold Acute leukocytosis; no obvious source of infection; patient received 1 dose of Rocephin in ED; no further antibiotics recommended at this time History of hypertension; patient takes lisinopril which is currently on hold; monitor blood pressure closely Diabetes mellitus type 2; patient is currently on Jardiance and metformin; we will monitor Accu-Cheks before every meal and at bedtime with insulin sliding scale; Lantus 10 units SQ nightly DVT prophylaxis; SCD CODE STATUS; full code
== END 2025-05-04 12:25 | disposition home or self-care (01) | DRG 682 ==
LOC: EC 14:26 → 2SICU 20:37 → 4SSUR 05-03 11:57
PROVIDERS: ADMIT Hospitalist; ATTEND Hospitalist
PROC: 3E033XZ Introduction of Vasopressor into Peripheral Vein, Percutaneous Approach (ICD-10-PCS; principal; 2025-05-02)
DX: N17.0 Acute kidney failure with tubular necrosis (principal); R57.1 Hypovolemic shock; E87.21 Acute metabolic acidosis; E11.9 Type 2 diabetes mellitus without complications; D72.829 Elevated white blood cell count, unspecified; E66.9 Obesity, unspecified; I10 Essential (primary) hypertension; E87.5 Hyperkalemia; T39.395A Adverse effect of other nonsteroidal anti-inflammatory drugs [NSAID], initial encounter; T46.4X5A Adverse effect of angiotensin-converting-enzyme inhibitors, initial encounter; T38.3X5A Adverse effect of insulin and oral hypoglycemic [antidiabetic] drugs, initial encounter; E78.5 Hyperlipidemia, unspecified; S46.211A Strain of muscle, fascia and tendon of other parts of biceps, right arm, initial encounter; S43.431A Superior glenoid labrum lesion of right shoulder, initial encounter; S46.811A Strain of other muscles, fascia and tendons at shoulder and upper arm level, right arm, initial encounter; Z68.33 Body mass index [BMI] 33.0-33.9, adult; Z79.84 Long term (current) use of oral hypoglycemic drugs; Z79.899 Other long term (current) drug therapy; Z87.891 Personal history of nicotine dependence
CPT/HCPCS: 36415; 71046; 74176; 80048; 80053; 81001; 82550; 83036; 83605; 83690; 83735; 84484; 85025; 85027; 85610; 85730; 87040; 93005; 94640; 96365; 96366; 96368; 96375; 99285

== ENCOUNTER → 2025-05-01 | Outpatient (CLI) | payer BC ==
[2025-05-01 14:12] LABS: African American GFR (CKD) 4 (>60 ml/min/1.73 sqM); Blood Urea Nitrogen 87 mg/dL (9-20); Non-African American GFR(CKD) 4 (>60 ml/min/1.73 sqM)
== END | disposition home or self-care (01) ==
LOC: RADCTMAIN 13:03
PROVIDERS: ATTEND Emergency Medicine
DX: R10.32 Left lower quadrant pain (principal)
CPT/HCPCS: 82565; 84520

== ENCOUNTER 2025-05-13 01:36 | Inpatient (IN) | payer BC ==
--- NOTE | 2025-05-13 02:56 | ED ---
General Adult HPI - General Source: patient, RN notes reviewed Mode of arrival: ambulatory Limitations: no limitations <Michelle Carlos - Last Filed: 05/13/25 04:19> <Dorothy Pillai - Last Filed: 05/15/25 18:40> - General Chief complaint: Nausea/Vomiting/Diarrhea Stated complaint: body aches, headache Time Seen by Provider: 05/13/25 02:22 - History of Present Illness Initial comments: 54-year-old male presents to the emergency department for evaluation of nausea and vomiting. He notes that over the past 2 to 3 days he has had difficulty tolerating p.o. intake. He notes that he has been vomiting and unable to hold anything down. Patient endorses heartburn and lower abdominal pain. He does note that he has had the urge to urinate but has not been able to. He denies any recent fever, chills. (Michelle Carlos) - Related Data Home Medications Medication Instructions Recorded Confirmed Atorvastatin [Lipitor] 20 mg PO HS 05/01/25 05/13/25 metFORMIN HCL 500 mg PO TID 05/01/25 05/13/25 Previous Rx's Medication Instructions Recorded Acetaminophen Tab [Tylenol] 650 mg PO Q6HR PRN tab 05/15/25 Calcium Carbonate [Tums] 1,000 mg PO Q4HR PRN tab 05/15/25 Mag Hydrox/Al Hydrox/Simeth 15 ml PO Q6HR PRN ml 05/15/25 [Maalox] Allergies Allergy/AdvReac Type Severity Reaction Status Date / Time No Known Allergies Allergy Verified 05/13/25 08:15 Review of Systems ROS Other: All systems not noted in ROS Statement are negative. <Michelle Carlos - Last Filed: 05/13/25 04:19> ROS Other: All systems not noted in ROS Statement are negative. <Dorothy Pillai - Last Filed: 05/15/25 18:40> ROS Statement: Those systems with pertinent positive or pertinent negative responses have been documented in the HPI. Past Medical History Past Medical History: Diabetes Mellitus, Hyperlipidemia, Hypertension Additional Past Medical History / Comment(s): ETOH History of Any Multi-Drug Resistant Organisms: None Reported Past Surgical History: Hernia Repair Additional Past Surgical History / Comment(s): Urology procedure. Past Anesthesia/Blood Transfusion Reactions: No Reported Reaction Past Psychological History: No Psychological Hx Reported Smoking Status: Former smoker Past Alcohol Use History: Daily Past Drug Use History: None Reported - Past Family History Father Family Medical History: Cancer Additional Family Medical History / Comment(s): Throat cancer. <Michelle Carlos - Last Filed: 05/13/25 04:19> General Exam Limitations: no limitations General appearance: alert, in no apparent distress Head exam: Present: atraumatic, normocephalic, normal inspection Eye exam: Present: normal appearance, PERRL, EOMI. Absent: scleral icterus, conjunctival injection, periorbital swelling ENT exam: Present: normal exam, mucous membranes moist Respiratory exam: Present: normal lung sounds bilaterally. Absent: respiratory distress, wheezes, rales, rhonchi, stridor Cardiovascular Exam: Present: regular rate, normal rhythm, normal heart sounds. Absent: systolic murmur, diastolic murmur, rubs, gallop, clicks GI/Abdominal exam: Present: tenderness, diminished bowel sounds. Absent: distended, guarding, rebound, rigid Extremities exam: Present: normal inspection, full ROM, normal capillary refill. Absent: tenderness, pedal edema, joint swelling, calf tenderness Back exam: Present: normal inspection Neurological exam: Present: alert, oriented X3 Psychiatric exam: Present: normal affect, normal mood Skin exam: Present: warm, dry, intact, normal color. Absent: rash <MikineoMichelle brooks - Filed: 05/13/25 04:19> Course Vital Signs 05/13/25 05/13/25 05/13/25 02:08 03:03 05:03 Temperature 97.7 F Pulse Rate 109 H 88 88 Respiratory 18 18 Rate Blood Pressure 84/57 108/74 96/59 O2 Sat by Pulse 95 96 96 Oximetry 05/13/25 05/13/25 05/13/25 05:16 05:27 06:50 Temperature Pulse Rate 93 113 H 101 H Respiratory 18 Rate Blood Pressure 81/50 O2 Sat by Pulse 95 Oximetry 05/13/25 05/13/25 05/13/25 07:30 08:11 09:00 Temperature Pulse Rate 96 98 92 Respiratory 18 16 16 Rate Blood Pressure 84/52 101/53 89/52 O2 Sat by Pulse 95 95 93 L Oximetry 05/13/25 05/13/25 05/13/25 10:00 13:30 15:00 Temperature Pulse Rate 94 95 86 Respiratory 18 18 18 Rate Blood Pressure 89/59 90/48 87/54 O2 Sat by Pulse 96 93 L 96 Oximetry 05/13/25 05/13/25 17:00 17:56 Temperature 97.7 F Pulse Rate 92 90 Respiratory 16 18 Rate Blood Pressure 98/59 97/58 O2 Sat by Pulse 98 97 Oximetry Medical Decision Making - Lab Data Result diagrams: 05/13/25 03:03 <Michelle Carlos - Last Filed: 05/13/25 04:19> - Lab Data Result diagrams: 05/15/25 07:50 05/15/25 07:50 <Dorothy Pillai - Last Filed: 05/15/25 18:40> - Medical Decision Making Was pt. sent in by a medical professional or institution (, PA, PEST CONTROL SERVICE SALES AGENT, urgent care, hospital, or correction...) When possible be specific @ -[No] Did you speak to anyone other than the patient for history (EMS, parent, family, police, friend...)? What history was obtained from this source @ -[No] Did you review nursing and triage notes (agree or disagree)? Why? @ -[I reviewed and agree with nursing and triage notes] Were old charts reviewed (outside hosp., previous admission, EMS record, old EKG, old radiological studies, urgent care reports/EKG's, correction records)? Report findings @ -[No old charts were reviewed] Differential Diagnosis (chest pain, altered mental status, abdominal pain women, abdominal pain men, vaginal bleeding, weakness, fever, dyspnea, syncope, headache, dizziness, GI bleed, back pain, seizure, CVA, palpatations, mental health, musculoskeletal)? @ -Differential Abdominal Pain Men: Appendicitis, cholecystitis, diverticulosis, ischemic bowel, pancreatitis, hepatitis, UTI, gastroenteritis, AAA, incarcerated hernia, bowel obstruction, constipation, inflammatory bowel, hepatitis, peptic ulcer disease, splenic infarction, perforated viscus, testicular torsion, this is not meant to be an all-inclusive list EKG interpreted by me (3pts min.). @ -[EKG at] X-rays interpreted by me (1pt min.). @ -[None done] CT interpreted by me (1pt min.). @ -[None done] U/S interpreted by me (1pt. min.). @ -[None done] What testing was considered but not performed or refused? (CT, X-rays, U/S, labs)? Why? @ -[None] What meds were considered but not given or refused? Why? @ -[None] Did you discuss the management of the patient with other professionals (professionals i.e. DrRonald, PA, PEST CONTROL SERVICE SALES AGENT, lab, RT, psych nurse, social service liaison, hvac mechanical engineer, teacher, legal officer, case investigator)? Give summary @ -[No] Was smoking cessation discussed for >3mins.? @ -[No] Was critical care preformed (if so, how long)? @ -[No] Were there social determinants of health that impacted care today? How? (Homelessness, low income, unemployed, alcoholism, drug addiction, transportation, low edu. Level, literacy, decrease access to med. care, intermediate, rehab)? @ -[No] Was there de-escalation of care discussed even if they declined (Discuss DNR or withdrawal of care, Hospice)? DNR status @ -[No] What co-morbidities impacted this encounter? (DM, HTN, Smoking, COPD, CAD, Cancer, CVA, ARF, Chemo, Hep., AIDS, mental health diagnosis, sleep apnea, morbid obesity)? @ -[None] Was patient admitted / discharged? Hospital course, mention meds given and route, prescriptions, significant lab abnormalities, going to OR and other pe rtinent info. @ -[hospital course] Undiagnosed new problem with uncertain prognosis? @ -[No] Drug Therapy requiring intensive monitoring for toxicity (Heparin, Nitro, Insulin, Cardizem)? @ -[No] Were any procedures done? @ -[No] Diagnosis/symptom? @ -[default] Acute, or Chronic, or Acute on Chronic? @ -[default] Uncomplicated (without systemic symptoms) or Complicated (systemic symptoms)? @ -[default] Side effects of treatment? @ -[No] Exacerbation, Progression, or Severe Exacerbation? @ -[No] Poses a threat to life or bodily function? How? (Chest pain, USA, MA, pneumonia, PE, COPD, DKA, ARF, appy, cholecystitis, CVA, Diverticulitis, Homicidal, Suicidal, threat to staff... and all critical care pts) @ -[No] (Michelle Carlos) Patient discussed with and signed out to myself pending completion of workup. Patient is a 54 y/o gentleman PMH DM, HTN presenting today for nausea and vomiting. Pt had recent admission for severe CHLOÉ. Patient's labs are significant for mild leukocytosis white blood cell count 16.10, potassium 7.6, sodium 133, chloride 96, bicarb 17, creatinine 6.63, this is triple from patient's last creatinine measured during his most recent admission at 2.04 however has been as high as 13.23. GFR 9. Lipase for under 19. Hyperkalemia order set was utilized to help lower potassium. EKG did now show arrythmia, however did show peaked T waves. Patient was continued on IV fluids. CT abdomen pelvis was obtained without contrast, showed no acute findings. I personally reviewed CT abdomen pelvis I do not see any signs of obstruction, perforation or other acute process. I updated patient to findings and anticipated admission. Case was discussed with Dr. Chase, nephrology who recommended bicarb infusion. Patient case was discussed with Dr. Ricks who kindly excepted patient for admission. Critical care time: 35 minutes Diagnosis: CHLOÉ, hyperkalemia, pancreatitis Acute, complicated (Dorothy Pillai) - Lab Data Lab Results 05/13/25 05/13/25 05/13/25 Range/Units 03:03 03:03 03:03 WBC 16.10 H (4.50-10.00) 10*3/uL RBC 4.32 L (4.40-5.60) 10*6/uL Hgb 13.7 D (13.0-17.0) g/dL Hct 40.8 (39.6-50.0) % MCV 94.4 (80.0-97.0) fL MCH 31.7 (27.0-32.0) pg MCHC 33.6 (32.0-37.0) g/dL Plt Count 251 (140-440) 10*3/uL MPV 11.2 (9.5-12.2) fL Immature Gran % (Auto) 0.4 % Neutrophils % 83.9 % Lymphocytes % 7.6 % Monocytes % 7.3 % Eosinophils % 0.2 % Basophils % 0.6 % Immature Gran # 0.07 H (0.00-0.04) 10*3/uL Neutrophils # 13.49 H (1.80-7.70) 10*3/uL Lymphocytes # 1.23 (0.90-5.00) 10*3/uL Monocytes # 1.18 H (0.20-1.00) 10*3/uL Eosinophils # 0.04 (0.04-0.35) 10*3/uL Basophils # 0.09 (0.00-0.10) 10*3/uL VBG pH (7.31-7.41) VBG pCO2 (37-51) mmHg VBG HCO3 (24-28) mmol/L Sodium 133 L (137-145) mmol/L Potassium 7.6 H* (3.5-5.1) mmol/L Chloride 96 L (98-107) mmol/L Carbon Dioxide 17 L (22-30) mmol/L Anion Gap 20 mmol/L BUN 72 H (9-20) mg/dL Creatinine 6.63 H (0.66-1.25) mg/dL Est GFR (CKD-EPI)AfAm 10 (>60 ml/min/1.73 sqM) Est GFR (CKD-EPI)NonAf 9 (>60 ml/min/1.73 sqM) Glucose 190 H (74-99) mg/dL Calcium 11.0 H (8.4-10.2) mg/dL Total Bilirubin 1.6 H (0.2-1.3) mg/dL AST 35 (17-59) U/L ALT 56 H (4-49) U/L Alkaline Phosphatase 150 H (38-126) U/L Troponin I 0.019 (0.000-0.034) ng/mL Total Protein 9.0 H (6.3-8.2) g/dL Albumin 5.2 H (3.5-5.0) g/dL Amylase 67 (30-110) U/L Lipase 419 H (23-300) U/L 05/13/25 Range/Units 04:20 WBC (4.50-10.00) 10*3/uL RBC (4.40-5.60) 10*6/uL Hgb (13.0-17.0) g/dL Hct (39.6-50.0) % MCV (80.0-97.0) fL MCH (27.0-32.0) pg MCHC (32.0-37.0) g/dL Plt Count (140-440) 10*3/uL MPV (9.5-12.2) fL Immature Gran % (Auto) % Neutrophils % % Lymphocytes % % Monocytes % % Eosinophils % % Basophils % % Immature Gran # (0.00-0.04) 10*3/uL Neutrophils # (1.80-7.70) 10*3/uL Lymphocytes # (0.90-5.00) 10*3/uL Monocytes # (0.20-1.00) 10*3/uL Eosinophils # (0.04-0.35) 10*3/uL Basophils # (0.00-0.10) 10*3/uL VBG pH 7.32 (7.31-7.41) VBG pCO2 39 (37-51) mmHg VBG HCO3 20 L (24-28) mmol/L Sodium (137-145) mmol/L Potassium (3.5-5.1) mmol/L Chloride (98-107) mmol/L Carbon Dioxide (22-30) mmol/L Anion Gap mmol/L BUN (9-20) mg/dL Creatinine (0.66-1.25) mg/dL Est GFR (CKD-EPI)AfAm (>60 ml/min/1.73 sqM) Est GFR (CKD-EPI)NonAf (>60 ml/min/1.73 sqM) Glucose (74-99) mg/dL Calcium (8.4-10.2) mg/dL Total Bilirubin (0.2-1.3) mg/dL AST (17-59) U/L ALT (4-49) U/L Alkaline Phosphatase (38-126) U/L Troponin I (0.000-0.034) ng/mL Total Protein (6.3-8.2) g/dL Albumin (3.5-5.0) g/dL Amylase (30-110) U/L Lipase (23-300) U/L Disposition <Michelle Carlos - Last Filed: 05/13/25 04:19> <Dorothy Pillai - Last Filed: 05/15/25 18:40> Clinical Impression: CHLOÉ (acute kidney injury) Disposition: ADMITTED IP TO THIS HOSP Condition: Stable
[2025-05-13] MEDS: MORPHINE SULFATE 4 MG/ML SYRINGE IVP STA (03:25)
[2025-05-13] MEDS: ONDANSETRON 4 MG/2 ML VIAL IVP STA (03:26)
[2025-05-13 03:29] LABS: Basophils # (A) 0.09 10*3/uL (0.00-0.10); Basophils % (A) 0.6 %; Eosinophils # (A) 0.04 10*3/uL (0.04-0.35); Eosinophils % (A) 0.2 %; HCT 40.8 % (39.6-50.0); Lymphocytes # (A) 1.23 10*3/uL (0.90-5.00); Lymphocytes % (A) 7.6 %; MCH 31.7 pg (27.0-32.0); MCHC 33.6 g/dL (32.0-37.0); MCV 94.4 fL (80.0-97.0); Monocytes # (A) 1.18 10*3/uL (0.20-1.00); Monocytes % (A) 7.3 %; Neutrophils # (A) 13.49 10*3/uL (1.80-7.70); Neutrophils % (A) 83.9 %; Platelet Count 251 10*3/uL (140-440); RBC 4.32 10*6/uL (4.40-5.60); RDW 11.8 % (11.5-14.5); WBC 16.10 10*3/uL (4.50-10.00)
[2025-05-13 03:42] LABS: ALT 56 U/L (4-49); AST 35 U/L (17-59); African American GFR (CKD) 10 (>60 ml/min/1.73 sqM); Albumin 5.2 g/dL (3.5-5.0); Alkaline Phosphatase 150 U/L (38-126); Amylase 67 U/L (30-110); Anion Gap 20 mmol/L; Blood Urea Nitrogen 72 mg/dL (9-20); Calcium 11.0 mg/dL (8.4-10.2); Carbon Dioxide 17 mmol/L (22-30); Chloride 96 mmol/L (98-107); Glucose 190 mg/dL (74-99); Lipase 419 U/L (23-300); Non-African American GFR(CKD) 9 (>60 ml/min/1.73 sqM); Sodium 133 mmol/L (137-145); Total Protein 9.0 g/dL (6.3-8.2)
[2025-05-13 04:12] LABS: Potassium 7.6 mmol/L (3.5-5.1)
[2025-05-13 04:34] LABS: HGB 13.7 g/dL (13.0-17.0)
[2025-05-13] MEDS: CALCIUM GLUCONATE IN NACL 1 GM in SALINE 1 100ML.BAG IVPB ONE (04:36)
[2025-05-13] MEDS: SODIUM CHLORIDE 0.9% 1,000 ML IV ONE (04:37)
[2025-05-13 04:44] LABS: VBG HCO3 20.0 mmol/L (24-28); VBG PCO2 39.0 mmHg (37-51); VBG PH 7.32 (7.31-7.41)
[2025-05-13] MEDS: FAMOTIDINE 20 MG/2 ML VIAL IV STA (04:49)
[2025-05-13] MEDS: SODIUM BICARB 8.4% 50 ML SYR (1 MEQ/ML) IV ONE (04:56)
[2025-05-13] MEDS: SODIUM ZIRCONIUM CYCLOSILICATE 10 GM PACKET PO ONE (04:56)
[2025-05-13] MEDS: DEXTROSE 50% SYRINGE 50 ML IVP ONE (04:57)
[2025-05-13] MEDS: INSULIN REGULAR 100 UNIT/ML VIAL (IV) IV ONE (04:57)
[2025-05-13] MEDS: ALBUTEROL NEB (CONC) 2.5 MG/0.5 ML INHALATION ONE (05:16)
--- NOTE | 2025-05-13 05:57 | XR ---
EXAM: XR Chest, 2 Views CLINICAL HISTORY: ITS.REASON XR Reason: heartburn TECHNIQUE: Frontal and lateral views of the chest. COMPARISON: X-ray dated 05/01/25. FINDINGS: Lungs: Hyperinflation of the lungs. No consolidation. Pleural space: Unremarkable. No pneumothorax. Heart: Unremarkable. No cardiomegaly. Mediastinum: Unremarkable. Normal mediastinal contour. Bones/joints: Degenerative changes are seen within the spine and shoulders. No acute fracture. Vasculature: Calcifications overlie the aorta. IMPRESSION: No acute findings in the chest.
--- NOTE | 2025-05-13 06:08 | CT ---
EXAM: CT Abdomen and Pelvis Without Intravenous Contrast CLINICAL HISTORY: ITS.REASON CT Reason: epi pain, distention TECHNIQUE: Axial computed tomography images of the abdomen and pelvis without intravenous contrast. CTDI is 11.3 mGy and DLP is 752.2 mGy-cm. This CT exam was performed using one or more of the following dose reduction techniques: automated exposure control, adjustment of the mA and/or kV according to patient size, and/or use of iterative reconstruction technique. COMPARISON: CT dated 08/09/2024. FINDINGS: Lung bases: Unremarkable. No mass. No consolidation. ABDOMEN: Liver: Hepatomegaly. No evidence of hepatic mass. Gallbladder and bile ducts: Unremarkable. No calcified stones. No ductal dilation. Pancreas: Unremarkable. No ductal dilation. Spleen: Unremarkable. No splenomegaly. Adrenals: Unremarkable. No mass. Kidneys and ureters: Unremarkable. No obstructing stones. No hydronephrosis. Stomach and bowel: Colonic diverticulosis without evidence of acute diverticulitis. No obstruction. PELVIS: Appendix: No findings to suggest acute appendicitis. Bladder: Unremarkable. No stones. Reproductive: Unremarkable as visualized. ABDOMEN and PELVIS: Intraperitoneal space: Unremarkable. No free air. No significant fluid collection. Bones/joints: Degenerative changes are seen within the spine and hips. Old left-sided rib fractures. No dislocation. Soft tissues: Fat-containing periumbilical hernia. Vasculature: Calcifications are seen within a nondilated aorta. Lymph nodes: Unremarkable. No enlarged lymph nodes. Other findings: Fatty distention of the bilateral inguinal canals. IMPRESSION: No acute findings in the abdomen or pelvis.
[2025-05-13] MEDS: SODIUM CHLORIDE 0.9% 500 ML 500 ML IV ONE (06:56)
[2025-05-13] MEDS ORDERED: NALOXONE 0.4 MG/ML 1 ML VIAL IV PRN (07:37)
[2025-05-13] MEDS ORDERED: HYDROmorphone 0.5 MG/0.5 ML SYRINGE IVP PRN (07:37)
[2025-05-13] MEDS ORDERED: MAG HYDROX/AL HYDROX/SIMETH 30 ML CUP PO PRN (07:37)
[2025-05-13] MEDS: DEXTROSE 5% IN WATER 1,000 ML with SODIUM BICARB (1 MEQ/ML) 150 ML IV SCH (07:37)
[2025-05-13] MEDS: FAMOTIDINE 20 MG TAB PO SCH (08:14)
[2025-05-13] MEDS: ENOXAPARIN 30 MG/0.3 ML SYRINGE SQ SCH (08:15)
[2025-05-13 08:48] LABS: ALT 38 U/L (4-49); AST 25 U/L (17-59); African American GFR (CKD) 11 (>60 ml/min/1.73 sqM); Albumin 4.1 g/dL (3.5-5.0); Alkaline Phosphatase 113 U/L (38-126); Anion Gap 19 mmol/L; Blood Urea Nitrogen 69 mg/dL (9-20); Calcium 9.6 mg/dL (8.4-10.2); Carbon Dioxide 15 mmol/L (22-30); Chloride 102 mmol/L (98-107); Glucose 173 mg/dL (74-99); Non-African American GFR(CKD) 10 (>60 ml/min/1.73 sqM); Potassium 5.0 mmol/L (3.5-5.1); Sodium 136 mmol/L (137-145); Total Protein 6.8 g/dL (6.3-8.2)
[2025-05-13] MEDS: ATORVASTATIN 20 MG TAB PO SCH (09:23)
[2025-05-13 11:57] LABS: Glucose,Whole Blood 160 mg/dL (70-110)
[2025-05-13] MEDS: INSULIN LISPRO (HumaLOG) 100 UNIT/ML 10 mL VL SQ SCH (12:01)
[2025-05-13] MEDS ORDERED: LORazepam 1 MG TAB PO PRN ×2 (16:02)
[2025-05-13] MEDS ORDERED: LORazepam 0.5 MG TAB PO PRN (16:02)
[2025-05-13] MEDS: PANTOPRAZOLE 40 MG/10 ML VIAL IVP SCH (16:31)
--- NOTE | 2025-05-13 16:53 | HP ---
HISTORY AND PHYSICAL CHIEF COMPLAINT: Nausea and vomiting. HISTORY OF PRESENT ILLNESS: This is a 54-year-old gentleman with a past medical history of multiple medical problems, diabetes, hypertension, hyperlipidemia, history of EtOH, was admitted recently with acute renal failure with significant prerenal renal failure, creatinine was 12, improved to 2 with the significant urine output and the patient was discharged, but currently the patient complains of difficulty in tolerating p.o. intake and the patient came to [facility] and was noted to have creatinine of 6.6 and potassium was 7.6. The patient was admitted for further evaluation and treatment. There is no history of fever, rigors, or chills at this time. Amylase and lipase also elevated. The abdominopelvic CAT scan did not show acute abnormality. PAST MEDICAL HISTORY: Diabetes mellitus type 2, hypertension, hyperlipidemia, and history of EtOH. Dose and rest of medications reviewed. HOME MEDICATIONS: Metformin. Dose and rest of medications reviewed. ALLERGIES: None. FAMILY HISTORY: History of throat cancer. SOCIAL HISTORY: Alcohol and remote history of smoking. REVIEW OF SYSTEMS: A 14-point review of systems negative except as mentioned earlier. PHYSICAL EXAMINATION: VITAL SIGNS: Pulse is 86, blood pressure 87/52, and respirations 18. HEENT: Conjunctivae normal. NECK: No jugular venous distention. CARDIOVASCULAR: S1, S2. RESPIRATION: Breath sounds diminished at the bases. A few scattered rhonchi. ABDOMEN: Soft, obese, nontender. LEGS: No edema. NERVOUS SYSTEM: Nonfocal. SKIN: No rash. JOINTS: No active deforming arthropathy. LABORATORY DATA: Labs are reviewed. ASSESSMENT: 1. Acute renal failure with acute tubular necrosis severe with severe hyperkalemia. 2. Possible acute gastritis secondary to EtOH. 3. ETOH. 4. Elevated WBC. 5. Possible acute pancreatitis. 6. Diabetes mellitus, type 2. 7. Hypertension. 8. Hyperlipidemia. RECOMMENDATIONS AND DISCUSSION: This 54-year-old gentleman presented with multiple complex medical issues. We will monitor the patient closely. Continue the current medications and symptomatic treatment. Cautious IV fluids. Otherwise pain management. I would also recommend Nephrology consultation, also recommend GI consultation for evaluation for possible endoscopes also to rule out the possibility of peptic ulcer disease. Prognosis guarded, because of multiple complex medical conditions. Further recommendations to follow. The patient is started on bicarb drip at this time. MMODL / IJN: [id number] /
[2025-05-13 17:28] LABS: Glucose,Whole Blood 150 mg/dL (70-110)
[2025-05-13 17:32] LABS: Bacteria,Urine Rare /hpf; Bilirubin,Urine Negative (Negative); Blood,Urine Trace (Negative); Color,Urine Light Yellow; Glucose,Urine (UA) Trace (Negative); Ketones,Urine Negative (Negative); Leukocyte Esterase,Urine Small (Negative); Mucus,Urine Rare /hpf; Nitrite,Urine Negative (Negative); PH, Urine 5.0 (5.0-8.0); Protein,Urine Trace (Negative); RBC,Urine 2 /hpf (0-5); Specific Gravity,Urine 1.013 (1.001-1.035); Squamous Epithelial Cell,Urine <1 /hpf (0-4); Urobilinogen,Urine <2.0 mg/dL (<2.0); WBC,Urine 7 /hpf (0-5)
--- NOTE | 2025-05-13 17:43 | P.NPCON ---
History of Present Illness - Reason for Consult acute renal failure - History of Present Illness Patient is a 54-year-old male who was recently discharged from the hospital on 05/04/2025 after hospitalization for acute kidney injury, volume depletion, metabolic acidosis and hyperkalemia. VICTOR M inhibitor's were discontinued. Metformin was initially held during hospitalization but restarted upon discharge. Serum creatinine had decreased to 2.0 on 05/03/2025 from 13.2 on initial admission. Patient is readmitted with complaints of increased weakness nausea and vomiting. He had 1 episode of diarrhea. Serum creatinine was 6.3 this admission with potassium of 7.6 and CO2 of 17. Blood pressure was low with systolic in the 80s. No urinary complaints. Past Medical History Past Medical History: Diabetes Mellitus, Hyperlipidemia, Hypertension Additional Past Medical History / Comment(s): ETOH History of Any Multi-Drug Resistant Organisms: None Reported Past Surgical History: Hernia Repair Additional Past Surgical History / Comment(s): Urology procedure. Past Anesthesia/Blood Transfusion Reactions: No Reported Reaction Past Psychological History: No Psychological Hx Reported Smoking Status: Former smoker Past Alcohol Use History: Daily Past Drug Use History: None Reported - Past Family History Father Family Medical History: Cancer Additional Family Medical History / Comment(s): Throat cancer. Medications and Allergies Home Medications Medication Instructions Recorded Confirmed Type Atorvastatin [Lipitor] 20 mg PO HS 05/01/25 05/13/25 History metFORMIN HCL 500 mg PO TID 05/01/25 05/13/25 History Allergies Allergy/AdvReac Type Severity Reaction Status Date / Time No Known Allergies Allergy Verified 05/13/25 08:15 Physical Exam Vitals: Vital Signs Temp Pulse Resp BP Pulse Ox 05/13/25 15:00 86 18 87/54 96 05/13/25 13:30 95 18 90/48 93 L 05/13/25 10:00 94 18 89/59 96 05/13/25 09:00 92 16 89/52 93 L 05/13/25 08:11 98 16 101/53 95 05/13/25 07:30 96 18 84/52 95 05/13/25 06:50 101 H 18 81/50 95 05/13/25 05:27 113 H 05/13/25 05:16 93 05/13/25 05:03 88 18 96/59 96 05/13/25 03:03 88 108/74 96 05/13/25 02:08 97.7 F 109 H 18 84/57 95 Intake and Output 05/13/25 05/13/25 05/13/25 06:59 14:59 22:59 Other: Weight 86.183 kg Patient is awake, comfortable, no acute distress Alert oriented x 3 Examination of the heart S1 and S2 Examination of the lungs bilateral breath sounds are heard Abdomen is soft nontender Examination of lower extremities shows no evidence of edema [employer] exam grossly intact Results - Lab Results Most recent lab results Calcium 9.6 mg/dL (8.4-10.2) 05/13/25 08:21 05/13/25 03:03 05/13/25 08:21 Assessment and Plan Assessment: 1. Acute kidney injury, ATN secondary to hypotension and hypoperfusion. Improving with IV hydration and improvement in blood pressure. UA shows trace blood trace protein and large amount of hyaline casts. 2. Hyperkalemia associated with acute kidney injury and metabolic acidosis. Currently off of VICTOR M inhibitors from recent hospitalization 1 week ago. Status post medical treatment. Repeat potassium is 5.0. 3. Anion gap metabolic acidosis associated with acute kidney injury. Check alcohol level. Check lactic acid 4. Type 2 diabetes maintained on metformin 5. Recent hospitalization for severe acute kidney injury with serum creatinine at 13 and subsequent improvement to 2.0 on 05/03/2025 upon discharge. Mostly associated with hypovolemia and hypotension. Plan: Continue with bicarb drip Check alcohol level and lactic acid level Repeat labs in a.m. Continue off of metformin and VICTOR M inhibitors. Repeat labs in a.m. Thank you for the consultation. We will continue to follow the patient with you during his hospitalization.
[2025-05-13] MEDS: CALCIUM CARBONATE 500 MG CHEWABLE PO PRN (18:18)
[2025-05-13 19:36] LABS: Glucose,Whole Blood 216 mg/dL (70-110)
[2025-05-13] MEDS: HEPARIN SODIUM,PORCINE 5,000 UNIT/ML 1 ML VIAL SQ SCH (19:59)
[2025-05-13] MEDS: ACETAMINOPHEN TAB 325 MG TAB PO PRN (23:20)
[2025-05-13] MEDS: LORazepam 1 MG TAB PO PRN (23:21)
[2025-05-14] MEDS: SODIUM CHLORIDE 0.9% 500 ML 500 ML IV ONE (04:29)
[2025-05-14 05:30] LABS: Glucose,Whole Blood 126 mg/dL (70-110)
[2025-05-14 07:24] LABS: Basophils # (A) 0.04 10*3/uL (0.00-0.10); Basophils % (A) 0.6 %; Eosinophils # (A) 0.19 10*3/uL (0.04-0.35); Eosinophils % (A) 3.0 %; HCT 31.5 % (39.6-50.0); Lymphocytes # (A) 1.44 10*3/uL (0.90-5.00); Lymphocytes % (A) 22.6 %; MCH 32.6 pg (27.0-32.0); MCHC 33.3 g/dL (32.0-37.0); MCV 97.8 fL (80.0-97.0); Monocytes # (A) 0.71 10*3/uL (0.20-1.00); Monocytes % (A) 11.2 %; Neutrophils # (A) 3.96 10*3/uL (1.80-7.70); Neutrophils % (A) 62.3 %; Platelet Count 177 10*3/uL (140-440); RBC 3.22 10*6/uL (4.40-5.60); RDW 11.6 % (11.5-14.5); WBC 6.36 10*3/uL (4.50-10.00)
[2025-05-14 07:56] LABS: ALT 30 U/L (4-49); AST 29 U/L (17-59); African American GFR (CKD) 20 (>60 ml/min/1.73 sqM); Albumin 3.5 g/dL (3.5-5.0); Alkaline Phosphatase 94 U/L (38-126); Anion Gap 9 mmol/L; Blood Urea Nitrogen 70 mg/dL (9-20); Calcium 8.5 mg/dL (8.4-10.2); Carbon Dioxide 30 mmol/L (22-30); Chloride 98 mmol/L (98-107); Glucose 137 mg/dL (74-99); HGB 10.5 g/dL (13.0-17.0); Non-African American GFR(CKD) 17 (>60 ml/min/1.73 sqM); Potassium 4.7 mmol/L (3.5-5.1); Sodium 137 mmol/L (137-145); Total Protein 5.9 g/dL (6.3-8.2)
[2025-05-14] MEDS ORDERED: FAMOTIDINE 20 MG TAB PO SCH (09:00)
--- NOTE | 2025-05-14 10:45 | P.PN ---
Subjective Patient is seen in follow-up for acute kidney injury. Tolerating oral intake. No vomiting today. Admits to good urine output. Vital signs are stable. General: No acute distress. HEENT: Head exam is unremarkable. LUNGS: No audible rhonchi or wheezes. HEART: Rate and Rhythm are regular. ABDOMEN: Non-tender. EXTREMITITES: No edema. Objective - Vital Signs Vital signs: Vital Signs Temp 97.8 F 05/14/25 08:00 Pulse 79 05/14/25 08:00 Resp 18 05/14/25 08:00 BP 100/63 05/14/25 08:00 Pulse Ox 94 L 05/14/25 08:00 FiO2 Intake & Output 05/13/25 05/14/25 05/14/25 18:59 06:59 18:59 Intake Total 240 120 Output Total 600 Balance -360 120 Weight 86.183 kg 86.2 kg Intake: Oral 240 120 Output: Urine 600 Other: Voiding Method Toilet Toilet Urinal Urinal # Voids 1 - Labs CBC & Chem 7: 05/14/25 06:41 05/14/25 06:41 Labs: Abnormal Lab Results - Last 24 Hours (Table) 05/13/25 05/13/25 05/13/25 Range/Units 11:56 16:59 17:27 RBC (4.40-5.60) 10*6/uL Hgb (13.0-17.0) g/dL Hct (39.6-50.0) % MCV (80.0-97.0) fL MCH (27.0-32.0) pg BUN (9-20) mg/dL Creatinine (0.66-1.25) mg/dL Glucose (74-99) mg/dL POC Glucose (mg/dL) 160 H 150 H (70-110) mg/dL Total Protein (6.3-8.2) g/dL Urine Protein Trace H (Negative) Urine Glucose (UA) Trace H (Negative) Urine Blood Trace H (Negative) Ur Leukocyte Esterase Small H (Negative) Urine WBC 7 H (0-5) /hpf Urine Bacteria Rare H (None) /hpf Urine Mucus Rare H (None) /hpf 05/13/25 05/14/25 05/14/25 Range/Units 19:35 05:28 06:41 RBC 3.22 L (4.40-5.60) 10*6/uL Hgb 10.5 L D (13.0-17.0) g/dL Hct 31.5 L (39.6-50.0) % MCV 97.8 H (80.0-97.0) fL MCH 32.6 H (27.0-32.0) pg BUN (9-20) mg/dL Creatinine (0.66-1.25) mg/dL Glucose (74-99) mg/dL POC Glucose (mg/dL) 216 H 126 H (70-110) mg/dL Total Protein (6.3-8.2) g/dL Urine Protein (Negative) Urine Glucose (UA) (Negative) Urine Blood (Negative) Ur Leukocyte Esterase (Negative) Urine WBC (0-5) /hpf Urine Bacteria (None) /hpf Urine Mucus (None) /hpf 05/14/25 Range/Units 06:41 RBC (4.40-5.60) 10*6/uL Hgb (13.0-17.0) g/dL Hct (39.6-50.0) % MCV (80.0-97.0) fL MCH (27.0-32.0) pg BUN 70 H (9-20) mg/dL Creatinine 3.69 H (0.66-1.25) mg/dL Glucose 137 H (74-99) mg/dL POC Glucose (mg/dL) (70-110) mg/dL Total Protein 5.9 L (6.3-8.2) g/dL Urine Protein (Negative) Urine Glucose (UA) (Negative) Urine Blood (Negative) Ur Leukocyte Esterase (Negative) Urine WBC (0-5) /hpf Urine Bacteria (None) /hpf Urine Mucus (None) /hpf Assessment and Plan Plan: Assessment: 1. Acute kidney injury secondary to ATN secondary to hypovolemia and hypotensi on. Renal function improving. Creatinine 3.69 today. No hydronephrosis noted on CT. UA fairly benign. 2. Hyperkalemia secondary to acute kidney injury and metabolic acidosis. Resolved. 3. Metabolic acidosis secondary to acute kidney injury. Improved with bicarb drip. 4. Diabetes mellitus. 5. Nausea and vomiting possibly from diabetic gastroparesis. Plan: Stop bicarb drip. Start normal saline at 100 cc an hour. Avoid nephrotoxins. Repeat labs in the morning.
[2025-05-14] MEDS: SODIUM CHLORIDE 0.9% 1,000 ML IV SCH (11:15)
[2025-05-14 11:55] LABS: Glucose,Whole Blood 166 mg/dL (70-110)
--- NOTE | 2025-05-14 12:16 | P.CONS ---
History of Present Illness - Reason for Consult Consult date: 05/14/25 EGD/recurrent nausea because of renal failure Requesting physician: Ivan Sanchez - Chief Complaint Nausea and vomiting - History of Present Illness This is a pleasant 54-year-old male with recent hospitalization for acute kidney injury. Past medical history includes diabetes mellitus, hyperlipidemia hypertension, daily alcohol use and GERD. Patient states he has not had anything to drink since Monday. He usually drinks 2 liquor drinks a day and he has been drinking many many years. States he had nausea vomiting that started about 2 weeks ago then it improved however returned yesterday. Denies any new medications. He had a CT of the abdomen pelvis with no acute findings. Does report acid reflux. States he was started on medication here and is feeling better. He has not had any further nausea and vomiting since coming to the hospital. He was on a renal diet and ate regular food last night and no complaints of nausea and vomiting no abdominal pain. No recent upper endoscopy reports. Review of Systems REVIEW OF SYSTEMS: CARDIOPULMONARY: No chest pain or shortness of breath. Gastrointestinal: No abdominal pain. Nausea and vomiting now resolved. Acid reflux. No hematemesis, coffee-ground emesis. No rectal bleeding, or melena. GENITOURINARY: No dysuria or hematuria. MUSCULOSKELETAL: Reports normal range of motion. SKIN: No rashes. No jaundice. ENDOCRINE: No chills, fevers. No excessive weight gain or loss. No polydipsia or polyuria. PSYCHIATRIC: Unremarkable. NEUROLOGY: No change in mental status. Denies dizziness, headache. ENT: Vision unremarkable. CONSTITUTIONAL: No recent weight loss. No fever, chills, night sweats. Past Medical History Past Medical History: Diabetes Mellitus, Hyperlipidemia, Hypertension Additional Past Medical History / Comment(s): ETOH, new onset renal failure April 2025 History of Any Multi-Drug Resistant Organisms: None Reported Past Surgical History: Hernia Repair Additional Past Surgical History / Comment(s): Urology procedure. Past Anesthesia/Blood Transfusion Reactions: No Reported Reaction Past Psychological History: No Psychological Hx Reported Smoking Status: Former smoker Past Alcohol Use History: Daily Additional Past Alcohol Use History / Comment(s): Quit smoking 15 yrs ago. 2 alcoholic drinks daily. Past Drug Use History: None Reported - Past Family History Father Family Medical History: Cancer Additional Family Medical History / Comment(s): Throat cancer. Medications and Allergies Home Medications Medication Instructions Recorded Confirmed Type Atorvastatin [Lipitor] 20 mg PO HS 05/01/25 05/13/25 History metFORMIN HCL 500 mg PO TID 05/01/25 05/13/25 History Allergies Allergy/AdvReac Type Severity Reaction Status Date / Time No Known Allergies Allergy Verified 05/13/25 08:15 Physical Exam Vitals: Vital Signs Temp Pulse Pulse Resp BP BP Pulse Ox 05/14/25 05:00 94/54 05/14/25 04:03 75 18 78/47 94 L 05/13/25 23:17 85 17 93/56 94 L 05/13/25 19:53 97.9 F 87 17 116/68 97 05/13/25 18:20 97.7 F 96 16 87/53 97 05/13/25 18:18 97.7 F 96 16 87/53 97 05/13/25 17:56 97.7 F 90 18 97/58 97 05/13/25 17:00 92 16 98/59 98 05/13/25 15:00 86 18 87/54 96 05/13/25 13:30 95 18 90/48 93 L 05/13/25 10:00 94 18 89/59 96 05/13/25 09:00 92 16 89/52 93 L 05/13/25 08:11 98 16 101/53 95 05/13/25 07:30 96 18 84/52 95 Intake and Output 05/13/25 05/13/25 05/14/25 14:59 22:59 06:59 Intake Total 240 Output Total 600 Balance 240 -600 Intake: Oral 240 Output: Urine 600 Other: Voiding Method Toilet Toilet Urinal Urinal # Voids 1 Weight 86.183 kg 86.2 kg General appearance: The patient is alert, oriented, appears in no acute distress. HET: Head is normocephalic and atraumatic. Conjunctiva pink. Sclera anicteric. Neck: Supple without lymphadenopathy. Trachea midline. Heart: Regular. Lungs: Equal expansion, normal respiratory effort. Abdomen: Soft, nontender, nondistended. Skin: No rashes. No jaundice. Extremities: Normal skin color and turgor. No pedal edema. Neurological: No focal deficits. Alert and oriented x3. Results CBC & Chem 7: 05/14/25 06:41 05/14/25 06:41 Labs: Abnormal Lab Results - Last 24 Hours (Table) 05/13/25 05/13/25 05/13/25 Range/Units 08:21 11:56 16:59 Sodium 136 L (137-145) mmol/L Carbon Dioxide 15 L (22-30) mmol/L BUN 69 H (9-20) mg/dL Creatinine 5.87 H (0.66-1.25) mg/dL Glucose 173 H (74-99) mg/dL POC Glucose (mg/dL) 160 H (70-110) mg/dL Urine Protein Trace H (Negative) Urine Glucose (UA) Trace H (Negative) Urine Blood Trace H (Negative) Ur Leukocyte Esterase Small H (Negative) Urine WBC 7 H (0-5) /hpf Urine Bacteria Rare H (None) /hpf Urine Mucus Rare H (None) /hpf 05/13/25 05/13/25 05/14/25 Range/Units 17:27 19:35 05:28 Sodium (137-145) mmol/L Carbon Dioxide (22-30) mmol/L BUN (9-20) mg/dL Creatinine (0.66-1.25) mg/dL Glucose (74-99) mg/dL POC Glucose (mg/dL) 150 H 216 H 126 H (70-110) mg/dL Urine Protein (Negative) Urine Glucose (UA) (Negative) Urine Blood (Negative) Ur Leukocyte Esterase (Negative) Urine WBC (0-5) /hpf Urine Bacteria (None) /hpf Urine Mucus (None) /hpf Comments: CT abdomen pelvis without contrast reports no acute findings in the abdomen or pelvis. Assessment and Plan (1) Nausea and vomiting Narrative/Plan: 54-year-old male presenting with nausea and vomiting again noted to have l eukocytosis on admission with normal WBC today and noted to have acute kidney injury. Unclear etiology of nausea and vomiting may be secondary to alcohol use disorder, GERD however symptoms are resolved and patient has been tolerating regular food. Will treat symptomatically with PPI and antiemetics. No plans on endoscopic evaluation at this time. Current Visit: Yes Status: Acute Code(s): R11.2 - NAUSEA WITH VOMITING, UNSPECIFIED SNOMED Code(s): 73669783 (2) GERD (gastroesophageal reflux disease) Current Visit: Yes Status: Acute Code(s): K21.9 - GASTRO-ESOPHAGEAL REFLUX DISEASE WITHOUT ESOPHAGITIS SNOMED Code(s): 028500935 (3) CHLOÉ (acute kidney injury) Current Visit: No Status: Acute Code(s): N17.9 - ACUTE KIDNEY FAILURE, UNSPECIFIED SNOMED Code(s): 96326749 Plan: 1. Continue symptomatic and supportive care 2. Protonix 40 mg twice daily 3. Antiemetics as needed 4. Recommend CIWA protocol 5. Recommend alcohol abstinence 6. No plans at this time for upper endoscopy, symptoms have resolved 7. Rest of medical management per primary medical team/nephrology Thank you for this consultation, we will continue to follow. Dr. Karly Ricketts I agree with the dictator's note, documented as a scribe by Verna De Anda.
[2025-05-14 12:46] VITALS: BMI 32.5
[2025-05-14 16:38] LABS: Glucose,Whole Blood 99 mg/dL (70-110)
[2025-05-14 20:16] LABS: Glucose,Whole Blood 142 mg/dL (70-110)
[2025-05-14 20:38] VITALS: TEMP 98.5
[2025-05-15 04:42] VITALS: RESP 16
--- NOTE | 2025-05-15 05:11 | PN ---
PROGRESS NOTE DATE OF SERVICE: 05/14/2025 SUBJECTIVE: This 54-year-old gentleman with a past medical history of multiple problems, admitted with significant vomiting. The patient has renal failure. The patient also history of EtOH. Also the kidney functions improved at 3.69 at this time. Multiple consultants are following the patient closely. PAST MEDICAL HISTORY: Reviewed. REVIEW OF SYSTEMS: Could not be taken. CURRENT MEDICATIONS: Reviewed. PHYSICAL EXAMINATION: VITAL SIGNS: Pulse is 92, blood pressure 117/75, respirations 18. HEENT: Conjunctivae normal. NECK: No JVD. CARDIOVASCULAR: S1, S2. RESPIRATIONS: Breath sounds diminished at the bases. ABDOMEN: Soft, nontender. LEGS: No edema. NERVOUS SYSTEM: Nonfocal. LABORATORY DATA: Reviewed. ASSESSMENT: 1. Acute renal failure with acute tubular necrosis with severe hyperkalemia, present on admission. 2. Recurrent acute renal failure. 3. Possible acute gastritis secondary to EtOH. 4. History of EtOH. 5. Elevated WBC. 6. Possible acute pancreatitis. 7. Diabetes mellitus, type 2. 8. Hypertension. 9. Hyperlipidemia. RECOMMENDATIONS: Recommend to continue current management and symptomatic treatment. Repeat labs. IV fluids. Close follow with multiple consultants, possible endoscopes. Guarded prognosis because of multiple complex medical issues. Discussed with the patient. Further recommendations to follow. MMODL / IJN: [id number] /
[2025-05-15 05:49] LABS: Glucose,Whole Blood 141 mg/dL (70-110)
[2025-05-15 08:02] LABS: Basophils # (A) 0.05 10*3/uL (0.00-0.10); Basophils % (A) 0.8 %; Eosinophils # (A) 0.25 10*3/uL (0.04-0.35); Eosinophils % (A) 4.2 %; HCT 31.7 % (39.6-50.0); HGB 10.3 g/dL (13.0-17.0); Lymphocytes # (A) 1.35 10*3/uL (0.90-5.00); Lymphocytes % (A) 22.5 %; MCH 32.2 pg (27.0-32.0); MCHC 32.5 g/dL (32.0-37.0); MCV 99.1 fL (80.0-97.0); Monocytes # (A) 0.62 10*3/uL (0.20-1.00); Monocytes % (A) 10.3 %; Neutrophils # (A) 3.71 10*3/uL (1.80-7.70); Neutrophils % (A) 61.9 %; Platelet Count 155 10*3/uL (140-440); RBC 3.20 10*6/uL (4.40-5.60); RDW 11.5 % (11.5-14.5); WBC 6.00 10*3/uL (4.50-10.00)
[2025-05-15 08:21] LABS: ALT 29 U/L (4-49); AST 32 U/L (17-59); African American GFR (CKD) 53 (>60 ml/min/1.73 sqM); Albumin 3.4 g/dL (3.5-5.0); Alkaline Phosphatase 93 U/L (38-126); Anion Gap 9 mmol/L; Blood Urea Nitrogen 40 mg/dL (9-20); Calcium 7.8 mg/dL (8.4-10.2); Carbon Dioxide 26 mmol/L (22-30); Chloride 106 mmol/L (98-107); Glucose 168 mg/dL (74-99); Magnesium 1.4 mg/dL (1.6-2.3); Non-African American GFR(CKD) 46 (>60 ml/min/1.73 sqM); Potassium 5.3 mmol/L (3.5-5.1); Sodium 141 mmol/L (137-145); Total Protein 6.0 g/dL (6.3-8.2)
--- NOTE | 2025-05-15 10:01 | P.PN ---
Subjective Progress Note Date: 05/15/25 Principal diagnosis: acute nausea and vomiting No acute events overnight. Patient is comfortable with no signs of acute distress. Patient stated that he is feeling better today, and his abdominal pain is minimal today. Denied fever, vomiting, diarrhea, dysuria, shortness of breath, chest pain. Patient is tolerating food and fluid. Cr 1.64 today (Cr 6.63 on admission) potassium is 5.3 today Objective - Vital Signs Vital signs: Vital Signs Temp 98.5 F 05/14/25 20:20 Pulse 73 05/15/25 09:08 Resp 16 05/15/25 09:08 BP 112/69 05/15/25 09:08 Pulse Ox 95 05/15/25 09:08 FiO2 Intake & Output 05/14/25 05/15/25 05/15/25 18:59 06:59 18:59 Intake Total 1150 540 Output Total 400 200 Balance 750 340 Weight 86.2 kg 92.5 kg Intake: IV 10 Invasive Line 1 10 Oral 1140 540 Output: Urine 400 200 Other: Voiding Method Toilet Toilet Urinal Urinal # Voids 0 # Bowel Movements 0 - Exam General: non toxic, no distress Derm: warm, dry Head: atraumatic, normocephalic Eyes: EOMI ENT: Nose and ears atraumatic Neck: supple Mouth: no lip lesion Cardiovascular: S1S2 reg, no murmur, no edema Lungs: clear to ascultation bilateral, no ronchi, no rales, no wheeze, no accessory muscle use Abdominal: soft, nontender to palpation, no guarding Ext: no gross muscle atrophy, muscle strength muscle strength 5 out of 5 in all 4 extremities, no contractures Psych: Alert, oriented x3 - Labs CBC & Chem 7: 05/15/25 07:50 05/15/25 07:50 Labs: Abnormal Lab Results - Last 24 Hours (Table) 05/14/25 05/14/25 05/15/25 Range/Units 11:50 20:14 05:46 RBC (4.40-5.60) 10*6/uL Hgb (13.0-17.0) g/dL Hct (39.6-50.0) % MCV (80.0-97.0) fL MCH (27.0-32.0) pg Potassium (3.5-5.1) mmol/L BUN (9-20) mg/dL Creatinine (0.66-1.25) mg/dL Glucose (74-99) mg/dL POC Glucose (mg/dL) 166 H 142 H 141 H (70-110) mg/dL Calcium (8.4-10.2) mg/dL Magnesium (1.6-2.3) mg/dL Total Protein (6.3-8.2) g/dL Albumin (3.5-5.0) g/dL 05/15/25 05/15/25 Range/Units 07:50 07:50 RBC 3.20 L (4.40-5.60) 10*6/uL Hgb 10.3 L (13.0-17.0) g/dL Hct 31.7 L (39.6-50.0) % MCV 99.1 H (80.0-97.0) fL MCH 32.2 H (27.0-32.0) pg Potassium 5.3 H (3.5-5.1) mmol/L BUN 40 H (9-20) mg/dL Creatinine 1.64 H (0.66-1.25) mg/dL Glucose 168 H (74-99) mg/dL POC Glucose (mg/dL) (70-110) mg/dL Calcium 7.8 L (8.4-10.2) mg/dL Magnesium 1.4 L (1.6-2.3) mg/dL Total Protein 6.0 L (6.3-8.2) g/dL Albumin 3.4 L (3.5-5.0) g/dL Assessment and Plan Assessment: 1. Hyperkalemia due to acute kidney injury and metabolic acidosis. Potassium is 5.3 today. 2. Acute kidney injury due to hypotension. Improving with IV hydration. Blood pressure is stable with SBP around 110. Cr 1.64 today. 3. Anion gap metabolic acidosis, resolved. 4. Diabetes mellitus on metformin. Last HbA1c 6.9. 5. Recent hospitalization on 05/01 for same symptoms of nausea and vomiting. Had CHLOÉ with Cr 13 on admission, and discharged on 05/13 with Cr at 2. Plan: Monitor potassium levels. Potassium 5.3 today. One dose of Lokelma 10g, and start on low potassium diet. Discontinue IV fluids. Cr 1.64 today Magnesium low. Replenish with Magnesium sulfate 2 g IVP Continue off VICTOR M inhibitor and metformin Avoid nephrotoxic agents I have seen and examined the patient with resident and agree with A&P as written. ATN due to hypovolemia - improving.
[2025-05-15 11:58] LABS: Glucose,Whole Blood 123 mg/dL (70-110)
[2025-05-15] MEDS: MAGNESIUM SULFATE-D5W PMX 1 GM in DEXTROSE/WATER 1 100ML.BAG IVPB SCH (12:07)
[2025-05-15] MEDS: SODIUM ZIRCONIUM CYCLOSILICATE 10 GM PACKET PO ONE (12:10)
[2025-05-15 12:13] VITALS: BP 93/53; PULSE 120
[2025-05-15 15:37] LABS: Ferritin 938.0 ng/mL (22.0-322.0); Iron 67.0 UG/DL (65-175); Total Iron Binding Capacity 263.0 UG/DL (228-460)
== END 2025-05-15 16:29 | disposition home or self-care (01) | DRG 682 ==
LOC: EC 01:36 → 3SCARD 07:37
PROVIDERS: ADMIT Internal Medicine; ATTEND Internal Medicine
DX: N17.0 Acute kidney failure with tubular necrosis (principal); K85.90 Acute pancreatitis without necrosis or infection, unspecified; E87.20 Acidosis, unspecified; E11.9 Type 2 diabetes mellitus without complications; E78.5 Hyperlipidemia, unspecified; D72.829 Elevated white blood cell count, unspecified; I10 Essential (primary) hypertension; F10.10 Alcohol abuse, uncomplicated; E87.5 Hyperkalemia; I95.9 Hypotension, unspecified; K21.00 Gastro-esophageal reflux disease with esophagitis, without bleeding; K29.00 Acute gastritis without bleeding; E86.1 Hypovolemia; Z79.84 Long term (current) use of oral hypoglycemic drugs; Z87.891 Personal history of nicotine dependence; Z79.899 Other long term (current) drug therapy
CPT/HCPCS: 36415; 51798; 71046; 74176; 80053; 81001; 82150; 82728; 82803; 83540; 83550; 83690; 83735; 84484; 85025; 93005; 94640; 96365; 96366; 96368; 96372; 96375; 99291